=== PATIENT | male | born 1960 | race Caucasian/White ===

== ENCOUNTER 2023-03-10 12:32 | Outpatient (OUT) | payer OTHER, SELFPAY ==
[2023-03-10 13:26] LABS: Basophils Percent Auto 0.5 % (0.2-2.0); Eosinophils Absolute Auto 0.2 10^3/uL (0.0-0.7); Hematocrit 50.1 % (42.0-54.0); Hemoglobin 16.3 g/dL (14.0-18.0); Immature Granulocytes Abs Auto 0.05 10^3/uL (0.00-0.03); Immature Granulocytes Pct Auto 0.7 % (0.0-0.5); Lymphocytes Percent Auto 26.3 % (20.5-60.0); Mean Corpuscular HGB Conc 32.5 g/dL (29.9-35.2); Mean Corpuscular Hemoglobin 30.6 pg (25.9-34.0); Mean Platelet Volume 9.3 fL (9.5-13.5); Monocytes Absolute Auto 0.6 10^3/uL (0.3-0.8); Monocytes Percent Auto 8.3 % (1.7-12.0); Neutrophils Absolute Auto 4.7 10^3/uL (1.4-6.5); Neutrophils Percent Auto 62.2 % (43.0-75.0); Platelet Count 178 10^3/uL (150-450); Red Blood Count 5.33 10^6/uL (4.70-6.10); White Blood Count 7.5 10^3/uL (4.0-11.0)
[2023-03-10 13:26] LABS: Bilirubin Urine NEGATIVE (NEGATIVE); Blood Urine SMALL (NEGATIVE); Clarity Urine CLEAR (CLEAR); Color Urine YELLOW (YELLOW); Glucose Urine UA NEGATIVE (NEGATIVE); Ketones Urine NEGATIVE (NEGATIVE); Leukocyte Esterase Urine NEGATIVE (NEGATIVE); Nitrite Urine NEGATIVE (NEGATIVE); Protein Urine NEGATIVE (NEG/TRACE); Specific Gravity Urine 1.025 (1.005-1.025); Urobilinogen Urine 0.2 EU/dL (0.2-1.0); pH Urine 5.5 (5.0-9.0)
[2023-03-10 13:36] LABS: Alanine Aminotransferase 50 U/L (16-63); Albumin Globulin Ratio 1.3; Albumin Level 3.8 g/dL (3.4-5.0); Alkaline Phosphatase 108 U/L (46-116); Anion Gap 10.2; Aspartate Amino Transferase 18 U/L (15-37); BUN Creatinine Ratio 11.3; Bilirubin Total 0.8 mg/dL (0.2-1.0); Calcium 9.8 mg/dL (8.5-10.1); Carbon Dioxide 28.3 mmol/L (21.0-32.0); Chloride 102 mmol/L (98-107); Chol HDL Ratio 2.5; Cholesterol 139 mg/dL (<=200); Estimated GFR (African America >60 (>=60); Estimated GFR (Non-African Ame >60 (>=60); Glucose 91 mg/dL (74-106); HDL Cholesterol 55 mg/dL (40-60); LDL Cholesterol Calculated 68.6 mg/dL; Potassium 4.5 mmol/L (3.5-5.1); Sodium 136 mmol/L (136-145); Total Protein 6.8 g/dL (6.4-8.2); Triglycerides 77 mg/dL (<=150); VLDL CHOLESTEROL 15.4 mg/dL
[2023-03-10 13:37] LABS: Bacteria Urine NONE SEEN #/HPF (NONE SEEN); Cast Seen? NONE SEEN #/LPF (NONE SEEN); Crystals Seen? None Seen #/HPF (None Seen); Mucus Urine NONE SEEN (NONE SEEN); Squamous Epithelial Cell Urine RARE #/LPF (NONE/RARE); WBC Urine 0-2 #/HPF (NONE SEEN)
[2023-03-10 14:06] LABS: Prostate Specific Antigen Scrn 3.58 ng/mL (<=4.00)
== END 2023-03-10 12:33 | disposition home or self-care (01) ==
LOC: LAB 12:35
PROVIDERS: PCP Internal Medicine; Visit Provider Internal Medicine
DX: Z00.00 Encounter for general adult medical examination without abnormal findings (principal)
CPT/HCPCS: 36415; 80053; 80061; 81001; 85025; G0103

== ENCOUNTER 2024-03-11 12:06 | Outpatient (OUT) | payer OTHER, SELFPAY ==
[2024-03-11 12:39] LABS: Basophils Percent Auto 0.3 % (0.2-2.0); Eosinophils Absolute Auto 0.1 10^3/uL (0.0-0.7); Eosinophils Percent Auto 1.7 % (0.9-7.0); Hematocrit 51.2 % (42.0-54.0); Hemoglobin 16.5 g/dL (14.0-18.0); Immature Granulocytes Abs Auto 0.05 10^3/uL (0.00-0.03); Immature Granulocytes Pct Auto 0.7 % (0.0-0.5); Lymphocytes Absolute Auto 2.1 10^3/uL (1.2-3.8); Lymphocytes Percent Auto 27.2 % (20.5-60.0); Mean Corpuscular HGB Conc 32.2 g/dL (29.9-35.2); Mean Corpuscular Hemoglobin 30.3 pg (25.9-34.0); Mean Corpuscular Volume 94.1 fL (80.0-94.0); Mean Platelet Volume 9.8 fL (9.5-13.5); Monocytes Absolute Auto 0.6 10^3/uL (0.3-0.8); Monocytes Percent Auto 7.5 % (1.7-12.0); Neutrophils Absolute Auto 4.8 10^3/uL (1.4-6.5); Neutrophils Percent Auto 62.6 % (43.0-75.0); Platelet Count 146 10^3/uL (150-450); Red Blood Count 5.44 10^6/uL (4.70-6.10); Red Cell Distribution Width 11.9 % (11.0-15.0); White Blood Count 7.7 10^3/uL (4.0-11.0)
[2024-03-11 13:02] LABS: Alanine Aminotransferase 52 U/L (16-63); Albumin Globulin Ratio 1.2; Alkaline Phosphatase 121 U/L (46-116); Anion Gap 14.1; BUN Creatinine Ratio 9.9; Calcium 9.6 mg/dL (8.5-10.1); Carbon Dioxide 25.7 mmol/L (21.0-32.0); Chloride 106 mmol/L (98-107); Chol HDL Ratio 2.6; Cholesterol 160 mg/dL (<=200); Estimated GFR (African America >60 (>=60 mL/min/1.73m^2); Estimated GFR (Non-African Ame >60 (>=60 mL/min/1.73m^2); Globulin 3.4 g/dL; Glucose 81 mg/dL (74-106); HDL Cholesterol 62 mg/dL (40-60); Sodium 141 mmol/L (136-145); Total Protein 7.4 g/dL (6.4-8.2); Triglycerides 98 mg/dL (<=150); VLDL CHOLESTEROL 19.6 mg/dL
[2024-03-11 13:03] LABS: Aspartate Amino Transferase 35 U/L (15-37); Potassium 4.8 mmol/L (3.5-5.1)
[2024-03-11 13:17] LABS: Prostate Specific Antigen Scrn 4.31 ng/mL (<=4.00)
== END 2024-03-11 12:07 | disposition home or self-care (01) ==
LOC: LAB 12:07
PROVIDERS: PCP Internal Medicine; Visit Provider Internal Medicine
DX: Z00.00 Encounter for general adult medical examination without abnormal findings (principal)
CPT/HCPCS: 36415; 80053; 80061; 85025; G0103

== ENCOUNTER 2025-03-14 11:21 | Outpatient (OUT) | payer OTHER, SELFPAY ==
--- OUTSIDE RECORDS SUMMARY | 2024-09-27 06:40 | XMS_ITS ---
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 Mechanic Name Role Phone Ari Pagan DO Primary Care Provider Unavaila Buck Lacy [phone] Encounters Encounter Location Date Provider Diagnosis Urology [facility] [address] [address] 09/27/2024 Buck Milner Plan Of Treatment Next Appt Details Provider Name:Jaye Cleary , 03/31/2025 11:00:00 AM, [facility], [address], [address], Progress Notes * Adarsh ARIZMENDI RDOB:1960 (64 yo M)Acc No.[id number]:09/27/2024 UNLOCKED PROGRESS NOTE Patient:?Adarsh ARIZMENDI :?Buck Milner MDDOB:1960???Age:64 Y ???Sex:MaleDate:09/27/2024Phone:[phone]:[address] [place], [place]-[address]Pcp:Ari Pagan DO Subjective: * Chief Complaints: * * Medical History: Objective: * Vitals: Assessment: Plan: * Treatment: * * Electronic signature of Buck Milner MD, [id number] on 03/14/2025 at 11:24 AM ESTSign off status: PendingVisit Status:?CANC (Cancelled) * Provider: Jia Milner MD Date: 0 09/27/2024 Generated for Printing/Faxing/eTransmitting on:?03/14/2025 11:24 AM EST
--- OUTSIDE RECORDS SUMMARY | 2025-02-28 19:30 | XMS_ITS | Encounter Summary ---
Author Organization [facility] Address [address], [address] [place] [address] Care Team Providers Care Manager Cleaning Name Role Phone Ari Pagan DO Primary Care Provider [phone] Reason for Visit * ReasonCommentsSleep Apnea * Sleep Study (Routine) - ClosedSpecialtyDiagnoses / ProceduresReferred By ContactReferred To [facility] Diagnoses Obstructive sleep apnea (adult) (pediatric) Procedures [place] POLYSOM 6/>YRS SLEEP 4/> ADDL LIBORIO ATTND Ari Pagan DO [address] [place] [address] Phone: tel: fax: [facility] [address] [place] [address] Phone: tel: Referral IDStatusReasonStart DateExpiration DateVisits RequestedVisits [id number] Encounter Details DateTypeDepartmentCare Team (Latest Contact Info)Yfdnpxfwxxe44/16/2025 7:30 PM EST - 02/28/2025 11:59 PM ESTHospital Encounter [facility] [address] [place] [id number] Discharge Disposition: Home or Self Care Social History Tobacco UseTypesPacks/DayYears UsedDateSmoking Tobacco: FormerSmokeless Tobacco: CurrentChewAlcohol UseStandard Drinks/WeekCommentsNo0 (1 standard drink = 0.6 oz pure alcohol)Housing Stability Vital SignAnswerDate RecordedIn the last 12 months, was there a time when you were not able to pay the mortgage or rent on time?No01/02/2025In the past 12 months, how many times have you moved where you were living?t any time in the past 12 months, were you homeless or living in a senior care (including now)?No01/02/2025Hunger Vital SignAnswerDate RecordedWithin the past 12 months, you worried that your food would run out before you got the money to buymore.Never true01/02/2025Within the past 12 months, the food you bought just didn't last and you didn't have money to get more.Never true01/02/2025PRAPARE - TransportationAnswerDate RecordedIn the past 12 months, has lack of transportation kept you from medical appointments or from getting medications?No01/02/2025In the past 12 months, has lack of transportation kept you from meetings, work, or from getting things needed for daily living?No01/02/2025HC UtilitiesAnswerDate RecordedIn the past 12 months has the electric, gas, oil, or water company threatened to shut off services in your home?No01/02/2025Interpersonal Safety Domain Source: IP Abuse Screening AnswerDate RecordedPhysical bklzwCqyvcv01/03/2025Verbal uscxoOviagi67/03/2025 Emotional jaawqKspbax32/03/2025Financial vetjtPykoaz82/03/2025Sexual abuseDenies 01/16/2025Sex and Gender InformationValueDate RecordedSex [facility]/12/2024 9:47 AM ESTLegal MqlDtyx6507/04/2014 3:38 PM EDTGender IdentityNot on fileSexual OrientationNot on filedocumented as of this encounter Medications at Time of Discharge MedicationSigDispense QuantityRefillsLast FilledStart DateEnd Date apixaban (ELIQUIS) 5 MG TABS tablet Take 1 tablet by mouth 2 times daily 60 tablet 01/04/2025 lisinopril (PRINIVIL;ZESTRIL) 5 MG tablet Take 4 tablets by mouth daily 120 tablet 01/04/2025 metoprolol tartrate (LOPRESSOR) 25 MG tablet Take 1 tablet by mouth 2 times daily 60 tablet dilTIAZem (CARDIZEM CD) 120 MG extended release capsule Take 1 capsule by mouth daily 30 capsule bicalutamide (CASODEX) 50 MG chemo tablet Take 1 tablet by mouth nightly acetaminophen (TYLENOL) 500 MG tablet Take 2 tablets by mouth every 6 hours as needed for Pain atorvastatin (LIPITOR) 40 MG tablet Take 1 tablet by mouth daily fluticasone (FLONASE) 50 MCG/ACT nasal spray 1-2 sprays by Nasal route as needed for Rhinitis tamsulosin (FLOMAX) 0.4 MG capsule Take 1 capsule by mouth daily 90 capsule aspirin 81 MG EC tablet Take 1 tablet by mouth dailydocumented as of this encounter Plan of Treatment Not on file documented as of this encounter Procedures Procedure NamePriorityDate/TimeAssociated DiagnosisCommentsBASELINE DIAGNOSTIC SLEEP JQHRHFjdtzky57/16/2025documented in this encounter Results * Baseline Diagnostic Sleep Study (02/28/2025)Specimen (Source)Anatomical Location / LateralityCollection Method / VolumeCollection TimeReceived Time 02/28/2025 Narrative Authorizing ProviderResult TypeResult StatusBenjamie Pagan [facility] ORDERABLESEdited Result - FinalPerforming OrganizationAddressCity/State/ZIP Code Phone Number [facility] SLEEP documented in this encounter Visit Diagnoses Not on filedocumented in this encounter Care Teams Team MemberRelationshipSpecialtyStart DateEnd Date Ari Pagan DO PCP - GeneralInternal Medicine03/24/18documented as of this encounter
--- OUTSIDE RECORDS SUMMARY | 2025-03-01 03:10 | XMS_ITS | Encounter Summary ---
Author Organization [facility] Address [address], [address] [place] [address] Care Team Providers Care Systems Mgr Name Role Phone Ari Pagan DO Primary Care Provider [phone] Reason for Visit * ReasonCommentsHematuriaIncreased tonight prostates removed 01/16/25 also placed on blood thinners for afib aand restarted thinners on 01/19/25 Encounter Details DateTypeDepartmentCare Team (Latest Contact Info)Ctwotafhgsw39/17/2025 3:10 AM EST - 03/01/2025 6:03 AM [facility] Emergency Department [address] [place] [address] [place] [address] [place] [id number] Acute cystitis with hematuria (Primary Dx) Discharge Disposition: Home or Self Care Social [...] were you homeless or living in a longterm (including now)?No01/02/2025Hunger Vital SignAnswerDate RecordedWithin the past [...] Domain Source: IP Abuse Screening AnswerDate RecordedPhysical bhbzoIjfaqa69/03/2025Verbal jurmiOecvcn92/03/2025 Emotional ovykyBxbvmp62/03/2025Financial lrugiXdbhww81/03/2025Sexual abuseDenies 01/16/2025Sex and Gender InformationValueDate RecordedSex [facility] 05/12/2024 9:47 AM ESTLegal ErcIhow1707/04/2014 3:38 PM EDTGender IdentityNot on fileSexual OrientationNot on filedocumented as of this encounter Last Filed Vital Signs Vital SignReadingTime TakenCommentsBlood Qhqopfzo254/9103/01/2025 4:10 AM EST Cvqkm2510/17/2025 6:00 AM SAMAgkseavpqoo63.7 ??C (98 ??F)03/01/2025 6:00 AM EST Respiratory Knff619605/02/2024 3:11 AM ESTOxygen Dcjlimfhpr20%03/01/2025 5:39 AM ESTInhaled Oxygen Concentration--Nawcsk354.1 kg (245 lb)03/01/2025 3:11 AM EST Rvmtte116 cm (6' 2 )03/01/2025 3:11 AM ESTBody Mass Index31.4603/01/2025 3:11 AM ESTdocumented in this encounter Discharge Instructions * Attachments The following attachments cannot be sent through Care Everywhere. * UTI (Urinary Tract Infection): Male (Faroese) documented in this encounter Medications at Time of Discharge [...] EC tablet Take 1 tablet by mouth daily cephALEXin (KEFLEX) 500 MG capsule Take 1 capsule by mouth 2 times daily for 5 days 10 capsule documented as of this encounter Plan of Treatment Not on file documented as of this encounter Procedures Procedure NamePriorityDate/TimeAssociated DiagnosisCommentsCT ABDOMEN PELVIS W IV BLKJWSVZTDDB40/17/2025 4:29 AM EST URINALYSIS WITH REFLEX TO CULTUREStat Sunquest Label print03/01/2025 3:58 AM EST MICROSCOPIC YOTFROKDVXVhtzubt77/17/2025 3:58 AM EST CULTURE, BUEMSPjnylus69/17/2025 3:58 AM EST CBC WITH AUTO DIFFERENTIALStat [employer]quest Label print03/01/2025 3:45 AM EST APTTStat [employer]quest Label print03/01/2025 3:45 AM EST PROTIME-INRStat [employer]quest Label print03/01/2025 3:45 AM EST COMPREHENSIVE METABOLIC PANELStat [employer]quest Label print03/01/2025 3:45 AM EST documented in this encounter Results * CT ABDOMEN PELVIS W IV CONTRAST Additional Contrast? None (03/01/2025 4:29 AM EST)Anatomical RegionLateralityModalityAbdomen, Pelvis, HipComputed Tomography Specimen (Source)Anatomical Location / LateralityCollection Method / Volume Collection TimeReceived Time03/01/2025 5:04 AM EST Impressions 03/01/2025 5:06 AM EST 1. Status post prostatectomy with contracted bladder, limiting evaluation. 2. Mild pelvic and periumbilical fat stranding, possibly related to recent surgery. Narrative 03/01/2025 5:06 AM EST EXAM: CT ABDOMEN AND PELVIS WITH CONTRAST 03/01/2025 04:29:11 AM TECHNIQUE: CT of the abdomen and pelvis was performed with the administration of intravenous contrast. Multiplanar reformatted images are provided for review. Automated exposure control, iterative reconstruction, and/or weight-based adjustment of the mA/kV was utilized to reduce the radiation dose to as low as reasonably achievable. COMPARISON: None available. CLINICAL HISTORY: hematuria. ORDERING SYSTEM PROVIDED HISTORY: hematuria; TECHNOLOGIST PROVIDED HISTORY: ; hematuria; ; Decision Support Exception - unselect if not a suspected or confirmed emergency medical condition->Emergency Medical Condition (MA); Reason for exam: hematuria; Additional signs andsymptoms?->Had prostate surgery on 01/16 and started blood thinners, has had intermittent hematuria. Patient now has had 5x days of excessive hematuria. FINDINGS: LOWER CHEST: Calcified coronary atheromatous plaque. Emphysematous changes in the lung bases. Scarring in the lower lobes, right greater than left. LIVER: The liver is unremarkable. GALLBLADDER AND BILE DUCTS: Gallbladder is unremarkable. No biliary ductal dilatation. SPLEEN: No acute abnormality. PANCREAS: No acute abnormality. ADRENAL GLANDS: No acute abnormality. KIDNEYS, URETERS AND BLADDER: No stones in the kidneys or ureters. No hydronephrosis. No perinephric or periureteral stranding. The bladder is contracted, limiting evaluation. GI AND BOWEL: Stomach demonstrates no acute abnormality. Diverticulosis. There is no bowel obstruction. PERITONEUM AND RETROPERITONEUM: No ascites. No free air. VASCULATURE: Aorta is normal in caliber. LYMPH NODES: No lymphadenopathy. REPRODUCTIVE ORGANS: Status post prostatectomy. BONES AND SOFT TISSUES: No acute osseous abnormality. Small fat-containing umbilical hernia. Mild fat stranding in the superumbilical subcutaneous fat, which may be related to recent procedure. Mild fat stranding in the pelvis is noted, which may be related to provided history of recent surgery. Procedure Note Rolando Hogue MD - 03/01/2025 EXAM: CT ABDOMEN AND PELVIS WITH CONTRAST 03/01/2025 04:29:11 AM TECHNIQUE: CT of the abdomen and pelvis was performed with the administration ofintravenous contrast. Multiplanar reformatted images are provided forreview. Automated exposure control, iterative reconstruction, and/orweight-based adjustment of the mA/kV was utilized to reduce the radiation dose to as low as reasonably achievable. COMPARISON: None available. CLINICAL HISTORY: hematuria. ORDERING SYSTEM PROVIDED HISTORY: hematuria; TECHNOLOGIST PROVIDED HISTORY: ; hematuria; ; Decision Support Exception - unselect if not a suspected or confirmed emergency medical condition->Emergency Medical Condition (MA);Reason for exam: hematuria; Additional signs and symptoms?->Had prostatesurgery on 01/16 and started blood thinners, has had intermittent hematuria. Patient now has had 5x days of excessive hematuria. FINDINGS: LOWER CHEST: Calcified coronary atheromatous plaque. Emphysematous changes in the lungbases. Scarring in the lower lobes, right greater than left. LIVER: The liver is unremarkable. GALLBLADDER AND BILE DUCTS: Gallbladder is unremarkable. No biliary ductal dilatation. SPLEEN: No acute abnormality. PANCREAS: No acute abnormality. ADRENAL GLANDS: No acute abnormality. KIDNEYS, URETERS AND BLADDER: No stones in the kidneys or ureters. No hydronephrosis. No perinephric or periureteral stranding. The bladder is contracted, limiting evaluation. GI AND BOWEL: Stomach demonstrates no acute abnormality. Diverticulosis. There is nobowel obstruction. PERITONEUM AND RETROPERITONEUM: No ascites. No free air. VASCULATURE: Aorta is normal in caliber. LYMPH NODES: No lymphadenopathy. REPRODUCTIVE ORGANS: Status post prostatectomy. BONES AND SOFT TISSUES: No acute osseous abnormality. Small fat-containing umbilical hernia. Mildfat stranding in the superumbilical subcutaneous fat, which may be relatedto recent procedure. Mild fat stranding in the pelvis is noted, which maybe related to provided history of recent surgery. IMPRESSION: 1. Status post prostatectomy with contracted bladder, limitingevaluation. 2. Mild pelvic and periumbilical fat stranding, possibly related to recent surgery. Authorizing ProviderResult TypeResult Tarakaruna Maya I, [facility] ORDERABLESFinal Result * (ABNORMAL) Culture, Urine (03/01/2025 3:58 AM EST)ComponentValueRef RangeTest MethodAnalysis TimePerformed AtPathologist SignatureSpecimen Description.CLEAN CATCH URINE03/01/2025 3:58 AM ESTMERCY LABORATORIESCultureSTAPHYLOCOCCUS AUREUS >100,000 CFU/ML This isolate is methicillin susceptible.(A)03/01/2025 3:58 AM ESTMERCY LABORATORIESSpecimen (Source)Anatomical Location / Laterality Collection Method / VolumeCollection TimeReceived TimeURINE SPECIMEN / Unknown 03/01/2025 3:58 AM EST03/01/2025 4:01 AM EST Narrative OrganismAntibioticMethodSusceptibilityStaphylococcus aureusgentamicinBACTERIAL SUSCEPTIBILITY PANEL FARA <=0.5: Sensitive Comment:Gentamicin is used only in combination with other active agents that test susceptible.Staphylococcus aureuslevofloxacinBACTERIAL SUSCEPTIBILITY PANEL FARA <=0.12: Sensitive Staphylococcus aureusnitrofurantoinBACTERIAL SUSCEPTIBILITY PANEL FARA <=16: Sensitive Staphylococcus aureusoxacillinBACTERIAL SUSCEPTIBILITY PANEL FARA 0.5: Sensitive Comment: This staph isolate may be susceptible to Penicillin. Please contact Microbiology for confirmatory testing of susceptibility if Pencillin is a therapeutic consideration. Staphylococcus aureustetracyclineBACTERIAL SUSCEPTIBILITY PANEL FARA <=1: Sensitive Staphylococcus aureustrimethoprim-sulfamethoxazoleBACTERIAL SUSCEPTIBILITY PANEL FARA <=10: Sensitive Authorizing ProviderResult TypeResult StatusZulma Maya I, DO MICROBIOLOGY - GENERAL ORDERABLESFinal ResultPerforming OrganizationAddress City/State/ZIP CodePhone Number [facility] [address] [place] [address], [facility] [phone] [address], [facility] [phone] * (ABNORMAL) Microscopic Urinalysis (03/01/2025 3:58 AM EST)ComponentValueRef RangeTest MethodAnalysis TimePerformed AtPathologist SignatureWBC, UATOO NUMEROUS TO COUNT(A)0 TO 5 /HPF03/01/2025 3:58 AM [facility] LABRBC, UATOO NUMEROUS TO COUNT(A)0 TO 2 /HPF03/01/2025 3:58 AM EST [facility] LABCasts UA0 TO 2(A)None /LPF105/02/2024 3:58 AM [facility] LABCasts UAHYALINE(A)None /LPF 03/01/2025 3:58 AM [facility] LABEpithelial Cells, UA0 TO 2/HPF03/01/2025 3:58 AM [facility] Bacteria, UAFEW(A)None03/01/2025 3:58 AM [facility] LABSpecimen (Source)Anatomical Location / LateralityCollection Method / Volume Collection TimeReceived Time03/01/2025 3:58 AM EST03/01/2025 4:01 AM EST Narrative Authorizing ProviderResult TypeResult StatusMansour HARITHA Lino ORDERABLESFinal ResultPerforming OrganizationAddressCity/State/ZIP CodePhone Number [facility] [address] [facility] [place] [address], [facility] [phone] * (ABNORMAL) Urinalysis with Reflex to Culture (03/01/2025 3:58 AM EST)Component ValueRef RangeTest MethodAnalysis TimePerformed AtPathologist SignatureColor, UAOrange(A)Ngoufp6003/01/2025 3:58 AM [facility] Turbidity UATurbid(A)Clear03/01/2025 3:58 AM [facility] LABGlucose, UrNEGATIVENEGATIVE mg/dL03/01/2025 3:58 AM [facility] LABBilirubin, UrinePresumptive positive. Unable to confirm due to unavailability of reagent.(A)REOOKEVR47/17/2025 3:58 AM EST [facility] LABKetones, UrineNEGATIVENEGATIVE mg/dL 03/01/2025 3:58 AM [facility] LABSpecific [place], UA1.0211.000 - 1.8259603/01/2025 3:58 AM [facility] LABUrine HgbLARGE(A)QBEHTKPI74/17/2025 3:58 AM [facility] LABpH, Urine5.05.0 - 8.012 3:58 AM [facility] LABProtein, UA2+(A)NEGATIVE mg/dL03/01/2025 3:58 AM [facility] LABUrobilinogen, UrineNormal0.0 - 1.0 EU/dL 03/01/2025 3:58 AM [facility] LABNitrite, Urine TAVCPNEEFCWDGZCT00/17/2025 3:58 AM [facility] Leukocyte Esterase, UrineMOD(A)HIWJQOVU45/17/2025 3:58 AM [facility] LABSpecimen (Source)Anatomical Location / Laterality Collection Method / VolumeCollection TimeReceived TimeURINE SPECIMEN / Unknown 03/01/2025 3:58 AM EST03/01/2025 4:01 AM EST Narrative Authorizing ProviderResult TypeResult StatusMansour HARITHA Lino ORDERABLESFinal ResultPerforming OrganizationAddressCity/State/ZIP CodePhone Number [facility] [address] [place] [address], [facility] [phone] * APTT (03/01/2025 3:45 AM EST)ComponentValueRef RangeTest MethodAnalysis Time Performed AtPathologist CwrkrdptvLQOP17.524.0 - 36.0 sec03/01/2025 3:45 AM EST [facility] LABComment: ? IV Heparin Therapy Range: ?62.0-94.0 ? Specimen (Source)Anatomical Location / LateralityCollection Method / Volume Collection TimeReceived TimeBloodBLOOD SPECIMEN / Whwxdje0003/01/2025 3:45 AM EST 03/01/2025 3:59 AM EST Narrative Authorizing ProviderResult TypeResult StatusMansokaruna Maya I, DO HEMATOLOGY ORDERABLESFinal ResultPerforming OrganizationAddressty/State/ZIP CodePhone Number [facility] [address] [facility] [place] [address], [facility] [phone] * (ABNORMAL) Protime-INR (03/01/2025 3:45 AM EST)ComponentValueRef RangeTest MethodAnalysis TimePerformed AtPathologist ToqvpipxbLgjteya87.1(H)11.8 - 14.6 sec03/01/2025 3:45 AM [facility] LABINR1. 3:45 AM [facility] LABComment: ? Therapeutic Range: Moderate Anticoagulant Intensity: INR = 2.0-3.0 High Anticoagulant Intensity: INR = 2.5-3.5 Specimen (Source)Anatomical Location / LateralityCollection Method / Volume Collection TimeReceived TimeBloodBLOOD SPECIMEN / Pqgjybr3203/01/2025 3:45 AM EST 03/01/2025 3:59 AM EST Narrative Authorizing ProviderResult TypeResult StatusMankaruna Maya I, DO HEMATOLOGY ORDERABLESFinal ResultPerforming OrganizationAddressty/State/ZIP CodePhone Number [facility] [address] [facility] [place] [address], [facility] [phone] * (ABNORMAL) Comprehensive Metabolic Panel (03/01/2025 3:45 AM EST)Component ValueRef RangeTest MethodAnalysis TimePerformed AtPathologist SignatureSodium 852022 - 145 mmol/L105/02/2024 3:45 AM [facility] Potassium4.23.7 - 5.3 mmol/L105/02/2024 3:45 AM [facility] YKKKwjuigcs91160 - 107 mmol/L105/02/2024 3:45 AM [facility] XQOSD53221 - 31 mmol/L12/ 3:45 AM [facility] LABAnion Gap99 - 16 mmol/L105/02/2024 3:45 AM [facility] MYXBffitxx355(H)74 - 99 mg/dL03/01/2025 3:45 AM [facility] OTBDWU482 - 23 mg/dL03/01/2025 3:45 AM [facility] LABCreatinine1.00.7 - 1.2 mg/dL03/01/2025 3:45 AM [facility] LABEst, Glom Filt Rate84>60 mL/min/1.73m2 03/01/2025 3:45 AM [facility] LABComment: ? These results are not intended for use in patients <18 years of age. ? eGFR results are calculated without a race factor using the 2020 CKD-EPI equation. Careful clinical correlation is recommended, particularly when comparing to results calculated using previous equations. The CKD-EPI equation is less accurate in patients with extremes of muscle mass, extra-renal metabolism of creatine, excessive creatine ingestion, or following therapy that affects renal tubular secretion. Calcium9.48.6 - 10.4 mg/dL03/01/2025 3:45 AM [facility] LABTotal Protein6.4(L)6.6 - 8.7 g/dL03/01/2025 3:45 AM [facility] LABAlbumin4.23.5 - 5.2 g/dL03/01/2025 3:45 AM [facility] LABTotal Bilirubin0.80.0 - 1.2 mg/dL03/01/2025 3:45 AM [facility] LABAlkaline Qrfjjsdaypm58108 - 129 U/L 03/01/2025 3:45 AM [facility] BWYCDQ8310 - 50 U/L 03/01/2025 3:45 AM [facility] ZQPLRL5472 - 50 U/L 03/01/2025 3:45 AM [facility] LABSpecimen (Source) Anatomical Location / LateralityCollection Method / VolumeCollection Time Received TimeBloodBLOOD SPECIMEN / Evwlbwb5103/01/2025 3:45 AM EST03/01/2025 3:59 AM EST Narrative Authorizing ProviderResult TypeResult StatusMansour Jess Patel DO CHEMISTRY ORDERABLESFinal ResultPerforming OrganizationAddressCity/State/ZIP CodePhone Number [facility] [address] [phone] * (ABNORMAL) CBC with Auto Differential (03/01/2025 3:45 AM EST)ComponentValue Ref RangeTest MethodAnalysis TimePerformed AtPathologist SignatureWBC8.23.5 - 11.0 k/uL03/01/2025 3:45 AM [facility] LABRBC5.05 4.21 - 5.77 m/uL03/01/2025 3:45 AM [facility] Zczhklsmvb61.913.5 - 17.5 g/dL03/01/2025 3:45 AM [facility] NRAEknjnheezy66.041.0 - 53.0 %03/01/2025 3:45 AM [facility] QOUZDU30.180.0 - 100.0 fL03/01/2025 3:45 AM [facility] IDJNAL73.526.0 - 34.0 pg03/01/2025 3:45 AM [facility] ZOHCRJR60.631.0 - 37.0 g/dL03/01/2025 3:45 AM EST [facility] CHDISP31.211.5 - 14.9 %03/01/2025 3:45 AM [facility] KJPNkjvykuys463012 - 450 k/uL03/01/2025 3:45 AM [facility] LABMPV9.28.0 - 13.5 fL03/01/2025 3:45 AM [facility] LABNRBC Automated0.00 per 100 WBC 03/01/2025 3:45 AM [facility] LABNeutrophils %5936 - 66 %03/01/2025 3:45 AM [facility] LABLymphocytes %29 24 - 44 %03/01/2025 3:45 AM [facility] LABMonocytes %93 - 12 %03/01/2025 3:45 AM [facility] LAB Eosinophils %20 - 4 %03/01/2025 3:45 AM [facility] LABBasophils %00 - 2 %03/01/2025 3:45 AM [facility] LABImmature Granulocytes %1(H)0 %03/01/2025 3:45 AM [facility] LABNeutrophils Absolute4.791.50 - 8.10 k/uL03/01/2025 3:45 AM [facility] LABLymphocytes Absolute2.401.10 - 3.70 k/uL03/01/2025 3:45 AM [facility] LABMonocytes Absolute0.700.10 - 1.20 k/uL03/01/2025 3:45 AM [facility] LABEosinophils Absolute0.190.00 - 0.44 k/uL03/01/2025 3:45 AM EST [facility] LABBasophils Absolute0.030.00 - 0.20 k/uL 03/01/2025 3:45 AM [facility] LABImmature Granulocytes Absolute0.050.00 - 0.30 k/uL03/01/2025 3:45 AM [facility] LABSpecimen (Source)Anatomical Location / Laterality Collection Method / VolumeCollection TimeReceived TimeBloodBLOOD SPECIMEN / Tlwzkqn3903/01/2025 3:45 AM EST03/01/2025 3:59 AM EST Narrative Authorizing ProviderResult TypeResult StatusMansour Jess Patel DO HEMATOLOGY ORDERABLESFinal ResultPerforming OrganizationAddressCity/State/ZIP CodePhone Number [facility] [address] [phone] documented in this encounter Visit Diagnoses Diagnosis Acute cystitis with hematuria- Primary Acute cystitis documented in this encounter Administered Medications Medication OrderMAR ActionAction DateDoseRateSite iopamidol (ISOVUE-370) 76 % injection 75 mL 75 mL, IntraVENous, IMG ONCE PRN, 1 dose, Starting on Thu03/01/25 at 0428, Until Thu03/01/25 at 0438, Other Given03/01/2025 4:38 AM EST75 mLs sodium chloride 0.9 % bolus 100 mL 100 mL (0.9 mL/kg), IntraVENous, at 3,000 mL/hr, Administer over 2 Minutes, ONCE, On Thu03/01/25 at 0430, For 1 dose New Bag03/01/2025 4:38 AM MZK102 zUs6567 mL/hr sodium chloride flush 0.9 % injection 10 mL 10 mL, IntraVENous, PRN, 1 dose, Starting on Thu03/01/25 at 0428, Until Thu03/01/25 at 0438, LineCare, For Line Patency: Peripheral IV = 5 mL; Midline or Central Line = 10 mL/lumen. If following IV push medication, administer flush at same rate as the IV push. Flush volume is determined by type of infusion therapy being given. For non-viscous solutions use: Peripheral IV = 5 mL Midline or Central Line = 10 mL/lumen For viscous solutions (i.e. blood components, parenteral nutrition, contrast media, or after obtaining blood sample) use: Peripheral IV = 10 mL Midline or Central Line = 20 mL/lumen Given03/01/2025 4:38 AM EST10 mLsdocumented in this encounter Active and Recently Administered Medications Times are shown in EST.Medication Order/ sodium chloride 0.9 % bolus 100 mL (COMPLETED) 100 mL (0.9 mL/kg), IntraVENous, at 3,000 mL/hr, Administer over 2 Minutes, ONCE, On Thu03/01/25 at 0430, For 1 dose * 0438 (New Bag - Provider: Mylene Colorado) * 0448 (Stopped - Provider: Celeste Hernandes RN) Medication Order/ iopamidol (ISOVUE-370) 76 % injection 75 mL (COMPLETED) 75 mL, IntraVENous, IMG ONCE PRN, 1 dose, Starting on Thu03/01/25 at 0428, Until Thu03/01/25 at 0438, Other * 0438 (Given - Provider: Mylene [place]) sodium chloride flush 0.9 % injection 10 mL (COMPLETED) 10 mL, IntraVENous, PRN, 1 dose, Starting on Thu03/01/25 at 0428, Until Thu03/01/25 at 0438, LineCare, For Line Patency: Peripheral IV = 5 mL; Midline or Central Line = 10 mL/lumen. If following IV push medication, administer flush at same rate as the IV push. Flush volume is determined by type of infusion therapy being given. For non-viscous solutions use: Peripheral IV = 5 mL Midline or Central Line = 10 mL/lumen For viscous solutions (i.e. blood components, parenteral nutrition, contrast media, or after obtaining blood sample) use: Peripheral IV = 10 mL Midline or Central Line = 20 mL/lumen * 0438 (Given - Provider: Mylene Colorado) documented in this encounter Care Teams Team MemberRelationshipSpecialtyStart DateEnd Date Ari Pagan DO PCP - GeneralInternal Medicine03/24/18documented as of this encounter
--- OUTSIDE RECORDS SUMMARY | 2025-03-14 06:14 | XMS_ITS | Continuity of Care Document ---
Author Organization [facility] Address [address] [place] [address] Phone Care Team Providers Care Park Ranger Name Role Phone Rosa Elena Landaverde CMA Attending Provider Unavaila rAi Bradley DO Primary Care Provider Ari Pagan DO Attending Provider Care Teams Patient Care Team Team Status: Active Member Role/Relationship Status Dates Ari Pagan DO Primary Care Provider Active Visit Care Team Team Status: Active Member Role/Relationship Status Dates Rosa Elena Landaverde CMA Attending Provider Active Start: January 05, 2025 Patient Care Team Team Status: Inactive Member Role/Relationship Status Dates Ari Pagan DO Primary Care Provider Active Start: March 14, 2025 End: March 14enjamie Pagan DOAttending ProviderActiveStart: March 14, 2025 End: March 14, 2025 Chief Complaint and Reason for Visit Chief Complaint Admit Date Amb Documentation January 05, 2025 9 :55am Wellness March 14, 2025 10:22am Reason for Visit Admit Date ASHD (arteriosclerotic heart disease) De cember 2024 10:22am Atrial fibrillation March 14, 2025 10:22am Essential (primary) hypertension Decembe r 2024 10:22am Hypercholesteremia March 14, 2025 10:22am Obesity March 14, 2025 10:22am ALEX (obstructive sleep apnea) February 152024 10:22am Prostate cancer March 14, 2025 10:22am Wellness examination March 14, 2025 10:22am Allergies, Adverse Reactions, Alerts Allergen Type Severity Reaction Last Updated Verified Status No Known Allergies Allergy Unknown March 14, 2025 10:32amYesActive Social History Smoking Status Unknown if ever smoked Observation Status Observation Response Date of Response Legal Sex Male (finding) Sex Assigned At BirthMaleMay 1960 Family History Relationship Condition Age at Onset Recorded Date/T zain father Heart disease Unknown DeceasedUnknownmotherHeart diseaseUnknownMalignant neoplasmUnknownDiabetes mellitusUnknownDeceasedUnknown Problems Active Problems Problem Diagnosis/Recorded Date Onset Date Status C omments ALEX (obstructive sleep apnea) May 12, 2023 8:52am U nknown Active Polyosteoarthritis, unspecifiedFebruary 2023 8:52amUnknownActiveProstate cancerJuly 2024 7:37amUnknownActiveMRI: right sided TR5 nodule - 05/2024,Fusion bx: 07/2024,Paramjit 3+4 (group II),Radical Prostatectomy- 01/16/25, Atrial fibrillationOctober 2024 10:62lw0424RlhwpvAzjfpf test NM: LVEF 57%, no reversible defect, no TID - 12/2024,Echo: LVEF 45-50%, MOODY, normal RV s ize/function, Ao 4.2cm - Wellness examinationDecember 2023 8:32am UnknownActiveHypercholesteremiaFebruary 2023 8:52amUnknownActiveEssential (primary) hypertensionFebruary 2023 8:52amNovember 2015ActiveObesity March 09, 2024 8:32amUnknownActiveASHD (arteriosclerotic heart disease) May 12, 2023 8:52amUnknownActivePCI/stent: 2004, Stress testing: w/ fixed inferior wall defect - 2018,Stress test NM: LVEF 57%, no reversible defect, no TID - 12/2024,Echo: LVEF 45-50%, MOODY, normal RV size/function, Ao 4.2cm - 12/15 5,Inactive/Resolved Problems Problem Diagnosis/Recorded Date Onset Date Status C omments Elevated prostate specific antigen (PSA) May 12, 2023 8:52am April 10, 2018 Resolved MRI: right sided TR5 nodule - 05/2024Fusion bx: 07/2024 Prostate nodule May 30, 2024 9:56am Unknown Resolve d MRI: right sided TR5 nodule - 05/2024Fusion bx: 07/2024 Medications Medication Status Dose Units Route Directions Qty Days Refills S tart Date Stop Date End Date Reason(s) Instructions Adherence Atorvastatin 40 mg tablet Discontinued 0 .ROUTE.JYTFVZQ602Tan 2023 12:02pmMay 2023 2:53pmTAKE 1 TABLET BY MOUTH DAILYAtorvastatin 40 mg tabletDiscontinued0.ROUTE.ANIIHYU200Rmq2023 2:52pmAugust 2023 8:24pmTAKE 1 TABLET BY MOUTH DAILYAtorvastatin 40 mg tabletDiscontinued0.ROUTE.HIFIXEF315Bcwzxg 2023 8:24pmFebruary 2024 7:07amTAKE 1 TABLET BY MOUTH DAILYLevofloxacin 500 mg nvmnpvNghhubeogczj590XVPK Tjhme02787Wczmndhk 2023 12:00amJanuary 2024 12:28pmLevofloxacin 500 mg ynstfcXnebzfnezzcv723APIHCiztc98306Opvvjpl 2024 12:28pmFebruary 2024 5:25pmLisinopril 20 mg tabletDiscontinued0.ROUTE.LOPSDGM382Nikqnsf 2024 7:25amOctober 2024 6:32amTAKE 1 TABLET BY MOUTH EVERY DAYAtorvastatin 40 mg tabletDiscontinued0.ROUTE.GNKUPUE762Vzjbgodj 20th, 2025 7:07amAugust 2024 5:14pmTAKE 1 TABLET BY MOUTH DAILYAtorvastatin 40 mg tabletActive0.ROUTE .WWZLGKL026Dpzojt 2024 5:14pmTAKE 1 TABLET BY MOUTH DAILYComplies with drug therapyLisinopril 20 mg fogstiSuhmgjnekatg51KXQIUkhee42292Dmunkdi 2024 6:32amDecember 2024 10:43amApixaban (Eliquis) 5 mg fqptlxKjgloh8APEU Twice sawgr68067Utjzxwu 2024 11:00pmComplies with drug therapyZolpidem 5 mg skvvenYeneyc0AHPNSmeei at bedtime as needed for bsmwgihh660Gecmoozv 2024 12:00amInsomnia Insomnia, unspecifiedTake before sleep study, avoid drivingComplies with drug therapyAspirin 81 mg tablet,delayed release (DR/EC)Xcpurx21FHBDTkwwtPcqpiwbf 2023 12:00amComplies with drug therapyFluticasone Propionate 50 mcg/actuation spray,kmliibrgwmVqvzic4KGHXGJIEYQWEGZCRivroCsjxftqy 2023 12:00amComplies with drug therapyLisinopril 20 mg wzsavyAaxljdsrmxdd15NTSAAbppk May 12, 2023 12:00amJanuary 2024 7:25amAmoxicillin-Pot Clavulanate 875-125 mg ovcyciMyguximemaer5OEOETVshum 12 gdolg33077Lrejoinr 2023 12:00amDecember 2023 11:26amAtorvastatin 40 mg fryexjBpuosejhekuf95UNDT DailyFebruary 2023 12:00amFebruary 2023 5:53pmAtorvastatin 40 mg bsypeaGpnkbypygsfp84OINEOcoxg03805Dodagyth 2023 5:52pmMay 2023 12:02pmDiltiazem Hcl 120 mg capsule,extended release 12 zgFprgfg643CTKVIoszw dailyDecember 2024 12:00amComplies with drug therapyMetoprolol Tartrate 25 mg sqllgmLmxrpd15NJASOnxnp dailyDecember 2024 12:00amComplies with drug therapy Immunizations Immunization Event Date Not Given Reason Dose Number 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 Lot Number Reason(s) Given Vaccine Information Statement (VIS) Detail Administration Location DTap, unspecified January 27, 2012 DTap, unspecifiedNov2019influenza, unspecified formulationJanuary 20, 2020 Vital Signs Vital Reading Result Reference Range Collection Date/Time Height 74 [in_i] March 14, 2025 10:03dgVrvlnm989.60 kgDecember 2024 10:45amHeart Rate 83 /fcy39-566Alahwwhe 2024 10:45amRespiratory rate12 /atz01-48Qnqtuosn 2024 10:45amBP Hbpthrtp210 mm[Hg]100-140December 2024 10:45amBP Qpkhrumne35 mm[Hg]60-100Dece2024 10:45amBMI (Body Mass Index)31.8 kg/s8DnympakyMarch 14, 2025 10:45am Advance Directives Advance Directive Response Recorded Date/ Time Advance Directives No April 8:38am Insurance Providers Guarantor Adarsh Arizmendi Address [address] [address]Pzixtcc Info.Home Phone: Payer Group Member ID Coverage Type Subscriber Relationship to Subscriber Effective Date Expiration Date [employer] Id: [id number] R Hunt Id: [id number] [address] [address] Home Phone: Self Encounters Encounter Location(s) Arrival/Admit Date Discharge/Departure Date Discharge/Departure Disposition Provider(s) Non-patient / Non-visit -[facility] Octob er 2024 9:55am Rosa Elena Landaverde CMADeparted Physician/Provider [facility] 10:22amDece2024 11:13amDischarged to home care or self care (routine discharge)Ari Pagan DO Recent Diagnosis Onset Date Admit Date ASHD (arteriosclerotic heart disease) Unknown March 14, 2025 10:22am Atrial fibrillation 2024 10:22am Essential (primary) hypertension February 02, 2015 March 14, 2025 10:22am Hypercholesteremia Unknown February 10:22am Obesity Unknown March 14 10:22am ALEX (obstructive sleep apnea) Unknown 2024 10:22am Prostate cancer Unknown March 14 10:22am Wellness examination Unknown March 142024 10:22am Assessments Diagnosis Onset Date Resolution Status Admit Date ASHD (arteriosclerotic heart disease) acuteDe2024 10:22amAtrial utswvzgpziwy2041vnxnlSeyotlky 30th, 2025 10:22amEssential (primary) hypertensionFebruary 02, cuteDecember 2024 10:22amHypercholesteremiaacuteDecember 2024 10:22amObesityacute March 14, 2025 10:22amOSA (obstructive sleep apnea)acuteDecemb2024 10:22amProstate canceracuteDecember 2024 10:22amWellness examinationacute March 14, 2025 10:22am Plan of Treatment [facility] 5:25pmI have instructed this patient on the recommended lifestyle changes, which includes a low fat, high fiber diet along with a regular exercise routine. I have also reviewed the recommended age-appropriate preventive testing for this patient. I have also reviewed the recommended vaccines for their age and risk factors. This patient is stable without activity related chest pain, dyspnea or lightheadedness. I instructed them to continue exercise at least 3x weekly and consume a low salt, low fat, high fiber diet. I instructed them to continue secondary prevention measures in reducing risks for recurrent events. PCI/stent: 2004, Stress testing: w/ fixed inferior wall defect - 2018, Stress test NM: LVEF 57%, no reversible defect, no TID - 12/2024, Echo: LVEF 45-50%, MOODY, normal RV size/function, Ao 4.2cm - , I have instructed this patient on a low fat, high fiber diet and exercise. I have discussed the primary and secondary prevention benefits attributed to lowering LDL cholesterol. I have also discussed the medical treatment of elevated cholesterol, which is based on the 10 year ASCVD risk. I have instructed this patient to consume a healthy, low-fat, low-salt diet. I have also encouraged them to continue exercise with weight loss to achieve/maintain a BMI < 30. I have instructed this patient on the correct procedure for obtaining home BP measurements:? - rest for 5 minutes w/o talking. - positioned w/ feet on floor and arms supported. - average best 2/3 readings w/ goal < 135/85. - update office w/ home readings in 2 weeks. This patient is aware of the benefits associated with treatment of ALEX: With continued use, the patient reduces the risk for NE, CVA, HTN, cardiac dysrhythmias and sudden cardiac deaths. The patient is also aware of the association between ALEX and morning headaches, daytime somnolence, fatigue and obesity, which also has been improved with continued use. The patient is compliant with treatment, wearing the equipment every night for greater than 4 hours. The patient is instructed to continue use of the CPAP for ALEX treatment. I have instructed this patient on a low-fat, high-fiber diet.?? I have also instructed them to reduce calories, portions sizes, sweet drinks and snacks.?? I have also recommended they exercise for 30 minutes, 3-5 times weekly. They are aware of the comorbid conditions associated with excessive weight: Diabetes, HTN, Hyperlipidemia, CAD and arthritis. This patient is [rhythm, rate] controlled. I instructed them to continue anticoagulation to prevent thromboembolic events. I instructed them to monitor their BP, HR and daily weights. I also instructed them to monitor for bleeding complications, including epistaxis, hematuria, melena and hematochezia. Stress test NM: LVEF 57%, no reversible defect, no TID - 12/2024, Echo: LVEF 45-50%, MOODY, normal RV size/function, Ao 4.2cm - Instructed to f/u with Urology MRI: right sided TR5 nodule - 05/2024, Fusion bx: 07/2024, Sharon 3+4 (group II), Radical Prostatectomy - 01/16/25, Future Tests Future scheduled test information is unavailable Pending Tests Pending diagnostic test information is unavailable Future Visits Future appointment information is unavailable Future Procedures Procedure Name Ordered Date Scheduled Date A1C with Estimated Average Glu March 14 11:06am Lipid PanelDecemb2024 11:06am Future Medications Future medication information is unavailable Patient Instructions Patient instructions are unavailable
--- OUTSIDE RECORDS SUMMARY | 2025-03-14 11:26 | XMS_ITS | Patient Health Record ---
Author Organization [facility] Address [address] [place] [address] Care Team Providers Care Munitions Factory Worker Name Role Phone Ari Pagan DO Primary Care Provider UnavailJaye Berg Unavailable [phone] Buck Milner Unavailable [phone] Allergies No Known Allergies Results Component Value Reference Range Notes CREGP (Not yet reviewed by jaja neri) Interpretation: Performing Lab: Notes/Report: Creatinine (POC) 0.9 0.51-1.19 mg/dL eGFR (POC)>90>60 mL/min/1.73m2 Careful clinical correlation is recommended, particularly when comparing to extra-renal metabolism of creatine, excessive creatine ingestion, or following eGFR results are calculated without a race factor using the 2020 CKD-EPI therapy that affects renal tubular secretion. These results are not intended for use in patients <18 years of age. equation. results calculated using previous equations. The CKD-EPI equation is less accurate in patients with extremes of muscle mass, MRI PROSTATE W WO CONTRAST (Not yet reviewed by provider) Interpretation: Performing Lab: Notes/Report: EXAMINATION: Performed at: [facility] - [facility] [address] [facility] [address] TYPE + SCREEN (Not yet reviewed by provider) Interpretation: Performing Lab:[facility], [address], [place] [address] PH:[phone] Notes/Report:Sample Dnmdoutegu57/06/2025,2359Arm Band GxaabqJF900641FAW/Rh(D)A POSITIVEAntibody ScreenNEGATIVEURINE CULTURE (Not yet reviewed by provider) Interpretation: Performing Lab:[facility], [facility] [place] [address] PH:[phone] Notes/Report:Specimen Description.CLEAN CATCH URINE Report Status FINAL 01/03/2025 Culture NO GROWTH Surgical Pathology ([facility]) (Not yet reviewed by provider) Interpretation: Performing Lab: Notes/Report: EXTRAPROSTATIC EXTENSION (pT3a): Not identified Operative Findings: PROSTATE AND SEMINAL VESICLES; BILATERAL PELVIC A, B. Source of Specimen -NUMBER WITH METASTASIS: 0 Interpretation Performed at [facility] 2213 - BENIGN PERIPROSTATIC ADIPOSE TISSUE. HISTOLOGIC GRADE (MADHU SCORE): 3+4 = 7 -[facility] [employer]OR[employer]ATED INTO GRADE: N/A A. PROSTATE GLAND AND SEMINAL VESICLES, RADICAL PROSTATECTOMY: blue, left half black and anterior aspect tagged green. Sectioning are fragments of fat, 7.0 x 4.0 x 2.0 cm in aggregate. Sectioning [address] [facility]. [place], [place] [address] TERTIARY PATTERN 5 (LESS THAN 5%) IN separate fat. focally disrupted seminal vesicles and vasa deferentia. Separate are LYMPHOVASCULAR INVASION: Not identified Electronically Signed Out URINARY BLADDER NECK INVASION (pT3a): Not identified OVERALL MADHU SCORE 7 (IF APPLICABLE): N/A LIMITED TO THE PROSTATE GLAND. Nurys Molina/se:01/16/2025 CRIBRIFORM GLANDS: Present, focal reveals periurethral nodules and in the posterior aspect in the mid REGIONAL LYMPH NODES -- Diagnosis -- reveals two large focally disrupted fatty nodes, 5.5 cm and 7.0 cm. sampling SURGICAL PATHOLOGY CONSULTATION fragments of fat, 5.0 x 3.0 x 1.8 cm in aggregate. The external unremarkable. The separate fat is focally fibrotic but otherwise [employer] GRADE GROUP (ISUP / WHO): 2 Santos Faye M.D. BILATERAL PELVIC LYMPH NODE DISSECTION prostate, 13-14 base of seminal vesicles and vasa deferentia Marlon ARIZMENDI, PROSTATE AND SEMINAL VESICLES Received in formalin Path Number: [id number] Patient Name: KYLEIGH ROSA Whalen PERCENT PATTERN 4 IN MADHU 7: 20% margins, 15-17 bladder neck margin perpendicular, 18 portion se is a 63 gram, 5.3 x 5.6 x 4.4 cm (L x W x H) prostate with attached SEMINAL VESICLE INVASION (MUSCLE WALL) (pT3b): Not identified CAP Prostate Med Rec: [id number] HISTOLOGIC TYPE: Adenocarcinoma, acinar (usual) type B. ROSA ARIZMENDI, BILATERAL PELVIC LYMPH NODES Received in formalin surfaces of the prostate are ragged pink-huitron with the right half inked ANATOMIC PATHOLOGY A: PROSTATE AND SEMINAL VESICLES TUMOR QUANTITATION: The adenocarcinoma is estimated to involve [facility] [place] [address] - BILATERAL SEMINAL VESICLES ARE NEGATIVE FOR NEOPLASM. Clinical Information LYMPH NODES unremarkable. Cassette summary: 1-3 apex margin perpendicular, Processing Lab: [facility] [address] [facility], - NEGATIVE FOR MALIGNANCY (0/2). PATHOLOGIC STAGE CLASSIFICATION: pT2 pN0 Gross Description induration. The seminal vesicles and vasa deferentia are grossly Pre-Op Diagnosis: PROSTATE CANCER Operation Performed: ROBOTIC LAPAROSCOPIC RADICAL PROSTATECTOMY, 4-6 cross section, 7-10 rim sections, 11-12 additional posterior B. BILATERAL PELVIC LYMPH NODES, RESECTION: (add TNM descriptors if applicable) B: BILATERAL PELVIC LYMPH NODES PROCEDURE: Radical prostatectomy with bilateral pelvic lymph node DISTANT METASTASIS: N/A [facility] - THE SURGICAL MARGINS ARE NEGATIVE FOR NEOPLASM. TREATMENT EFFECT: Not identified -NUMBER OF LYMPH NODES EXAMINED: 2 portion of the gland, predominantly on the right side, [place] [address] Cassette summary: 1-3 one node, 4-8 one node. 01/17/2025 INTRADUCTAL CARCINOMA: N/A - PROSTATIC ADENOCARCINOMA, MADHU SCORE 3+4= 7 (GRADE GROUP 2), approximately 10% of the gland volume. MARGINS: Negative Microscopic Description Reason For Referral No Information Medications Medication SIG (Take, Route, Frequency, Duration) Notes Start Date End Date Status Lipitor 40 MG 1 tablet Orally Once a day ActiveEliquis 5 MG1 table Orally twice a dayActivedilTIAZem HCl 120 MG1 tablet before meals Orally Three times a dayActiveAspirin 81 MG1 tablet Orally Daily ActiveMetoprolol Succinate 25 MG1 capsule Orally twice a dayActive Social History AUDIT-C (Standard) Question Answer Notes Did you have a drink containing alcohol in the p ast year? No Hngbzb1OjtzddlpwxdqigZwhhtpgsJrqxecq Notes: Quit smoking in 2005, Dips Quit smoking in 2004, Dips Quit smoking in 2004, Dips Quit smoking in 2004, Dips Quit smoking in 2005, Dips Quit smoking in 2005, Dips Problems Problem Type SNOMED Code ICD Code Onset Dates Problem Status W/U Status Risk Notes Problem Mixed hyperlipidemia (638307649) Mixed hy perlipidemia (E78.2) ActiveconfirmedProblemAtrial fibrillation (62301900)Unspecified atrial fibrillation (I48.91)ActiveconfirmedProblemChest pain (36954989)Chest pain (R07.9)ActiveconfirmedProblemAtrial fibrillation (18209240)Atrial fibrillation (I48.91)ActiveconfirmedProblemHyperlipidemia (77290265)Hyperlipidemia (E78.5) ActiveconfirmedProblemCoronary artery disease (42112873)Coronary artery disease (I25.10)ActiveconfirmedProblemEssential hypertension (56925853)Essential hypertension (I10)ActiveconfirmedProblemSyncope (687674635)Syncope (R55)Active confirmedProblemBenign prostatic hyperplasia (492618361)BPH (benign prostatic hyperplasia) (N40.0)ActiveconfirmedProblemAngina co-occurrent and due to coronary arteriosclerosis (41122702563348263)Coronary artery disease of [place] artery of [place] traverse heart with stable angina pectoris (I25.119)Activeconfirmed Vital Signs Heart Rate 91 /min 02/02/2025 Blood pressure qqrgzaqil98 mm Hg02/02/20251609Ypdkxdij90 %02/02/20250737Rnpsmp55.5 in 02/02/2025lood pressure vaplykkz347 mm Hg02/02/20257805Nlyimb000 lbs104/04/2024MI 32.14 kg/m202/02/2025 Procedures Procedure Date Ordered Date Performed Result Body Sit e Prostate Ultrasound with Biopsy 07/22/2024 07/25/2024 N/A EKG w Interp & Report - vljyfyaud66/20/2025N/A Encounters Encounter Location Date Provider Diagnosis Cardiology Margret Cleary [address] [facility] [address] [place] [address] 02/02/2025 Murrayt Evin Essential hypertensi on I10 ; Chest pain R07.9 and Unspecified atrial fibrillation I48.[address] [place] [address] 07/22/2024 Buck Milner Elevated prostate specific antigen (PSA) R97.20 and BPH (benign prostatic hyperplasia) N40.[address] [address] 09/08/2024 Buck Milner Assessments Encounter Date Diagnosis (ICD Code) Assessment Notes Treatment Notes Treatment Clinical Notes Section Notes 02/02/2025 Essential hypertension (ICD-10 - I10) Today's blood pressure 120/700/5BPH (benign prostatic hyperplasia) (ICD- 10 - N40.0)07/22/2024Elevated prostate specific antigen (PSA) (ICD-10 - R97.20) 02/02/2025Unspecified atrial fibrillation (ICD-10 - I48.91)A-fib heart rate under ndyfrnl3502/02/2025hest pain (ICD-10 - R07.9)At present no chest pain 02/02/2025Other Today he drove to my office He had robotic prostate surgery on 01/16/2025 and he is recovering At present he has frequency of micturition every 2 hours but no dysuria, no fever, and no chills No hematuria Hemodynamically stable Continue with current medication I am going to see him again in few weeks and we will arrange for his VITALY and cardioversion or ablation therapy. 07/22/2024Other MRI fusion for PIRADS-5 lesion. Cipro called in. Plan Of Treatment Pending Test Test Name Order Date EKG w Interp & Report - performed 2022 EKG w Interp & Report - performed 2023 EKG w Interp & Report - performed 2024 Surgical Pathology ([facility]) 01/16/2025 TYPE + SCREEN 01/02/2025 URINE CULTURE 01/02/2025 CREGP 05/28/2024 MRI PROSTATE W WO CONTRAST 05/30/2024 Next Appt Details Provider Name:Jaye Cleary , 03/31/2025 11:00:00 AM, [address], [address], [place], [address], Insurance Providers Payer Name Payer Address Payer Phone Subscriber Number Group Number Insured Name Patient Relationship to Insured Coverage Start Date Coverage End Date [employer] [address] [address] [place] [address] [id number] Rosa Arizmendi Self - patient is the insured Medical (General) History Medical History History ICD Code Coronary Artery Disease HypertensionHyperlipidemiaAtrial rywkspewrwjoG67.91Surgical History Surgery Date(Month/Year) Prostatectomy 01/2025 ankle surgery Hernia surgery x 2Left ankle surgeryHistory of Cardiac Catherization with stent placement to the RCA-04/2004Hospitalization History Reason Date(Month/Year) New onset of A-fib 12/2024
--- OUTSIDE RECORDS SUMMARY | 2025-03-14 11:26 | XMS_ITS | Encounter Summary ---
Author Organization [facility] Address [address], [address] [place] [address] Care Team Providers Care [place] Attorney Name Role Phone Ari Pagan DO Primary Care Provider [phone] Reason for Visit * ReasonCommentsMedication Refill Encounter Details DateTypeDepartmentCare Team (Latest Contact Info)Fsgrmtotwgg55/22/2025Refill [facility] [place] [address] [place] [phone] Shireen Sutton MD [address] [place] [address] Medication Refill Social History Tobacco UseTypesPacks/DayYears UsedDateSmoking Tobacco: FormerSmokeless [...] were you homeless or living in a half-way (including now)?No01/02/2025Hunger Vital SignAnswerDate RecordedWithin the past [...] Domain Source: IP Abuse Screening AnswerDate RecordedPhysical nwoosQmizjh04/03/2025Verbal eictwNuqufo36/03/2025 Emotional xylsxLdndfc35/03/2025Financial yyghqFuykoc78/03/2025Sexual abuseDenies 01/16/2025Sex and Gender InformationValueDate RecordedSex [facility]igned [facility] 05/12/2024 9:47 AM ESTLegal FxlBrjo1707/04/2014 3:38 PM EDTGender IdentityNot on fileSexual OrientationNot on filedocumented as of this encounter Plan of Treatment Not on file documented as of this encounter Visit Diagnoses Not on filedocumented in this encounter Care Teams Team MemberRelationshipSpecialtyStart DateEnd Date Ari Pagan DO PCP - GeneralInternal Medicine03/24/18documented as of this encounter
--- OUTSIDE RECORDS SUMMARY | 2025-03-14 11:26 | XMS_ITS | Encounter Summary ---
Author Organization [facility] Address [address], [address] [place] [address] Care Team Providers Care Pathology Assistant Name Role Phone Ari Pagan DO Primary Care Provider [phone] Encounter Details DateTypeDepartmentCare Team (Latest Contact Info)Vqlmasexwtu72/17/2025Travel Social History Tobacco UseTypesPacks/DayYears UsedDateSmoking Tobacco: FormerSmokeless [...] were you homeless or living in a care home (including now)?No01/02/2025Hunger Vital SignAnswerDate RecordedWithin the past [...] Domain Source: IP Abuse Screening AnswerDate RecordedPhysical mcqynFoktkb54/03/2025Verbal wucghLrothl96/03/2025 Emotional hoimcUwpkbm46/03/2025Financial ybxzsYqjqzi86/03/2025Sexual abuseDenies 01/16/2025Sex and Gender InformationValueDate RecordedSex Assigned at BirthMale 05/12/2024 9:47 AM ESTLegal YifGdwb6807/04/2014 3:38 PM EDTGender IdentityNot on fileSexual OrientationNot on filedocumented as of this encounter Plan of Treatment Not on file documented as of this encounter Visit Diagnoses Not on filedocumented in this encounter Care Teams Team MemberRelationshipSpecialtyStart DateEnd Date Ari Pagan DO PCP - GeneralInternal Medicine03/24/18documented as of this encounter
--- OUTSIDE RECORDS SUMMARY | 2025-03-14 11:26 | XMS_ITS | Clinical Summary ---
Author Organization [facility] Address [address], [address] [place] [address] Care Team Providers Care Cook Box Filler Name Role Phone Ari Pagan DO Primary Care Provider [phone] Allergies No known active allergies Medications MedicationSigDispense QuantityRefillsLast FilledStart DateEnd DateStatus aspirin 81 MG EC tablet Take 1 tablet by mouth dailyActive atorvastatin (LIPITOR) 40 MG tablet Take 1 tablet by mouth dailyActive fluticasone (FLONASE) 50 MCG/ACT nasal spray 1-2 sprays by Nasal route as needed for RhinitisActive tamsulosin (FLOMAX) 0.4 MG capsule Take 1 capsule by mouth daily 90 capsule 5Active Additional Information Patient taking differently:0.4 mg OralEVERY BEDTIME, Reported on 01/16/2025 bicalutamide (CASODEX) 50 MG chemo tablet Take 1 tablet by mouth nightlyActive acetaminophen (TYLENOL) 500 MG tablet Take 2 tablets by mouth every 6 hours as needed for PainActive apixaban (ELIQUIS) 5 MG TABS tablet Take 1 tablet by mouth 2 times daily 60 tablet 5Active lisinopril (PRINIVIL;ZESTRIL) 5 MG tablet Take 4 tablets by mouth daily 120 tablet 5Active metoprolol tartrate (LOPRESSOR) 25 MG tablet Take 1 tablet by mouth 2 times daily 60 tablet 5Active dilTIAZem (CARDIZEM CD) 120 MG extended release capsule Take 1 capsule by mouth daily 30 capsule 5Active docusate sodium (COLACE) 100 MG capsule Take 1 capsule by mouth 2 times daily 60 capsule 5104/18/2024Expired cephALEXin (KEFLEX) 500 MG capsule Take 1 capsule by mouth 2 times daily for 5 days 10 capsule 5105/07/2024Expired Active Problems ProblemNoted DateDiagnosed DateAtrial fibrillation with RVR1Open bimalleolar fracture of left ankle01/03/2015 Encounters DateTypeDepartmentCare MndmQergsrlkgqw51/17/2025 3:10 AM EST - 03/01/2025 6:03 AM [facility] Emergency Department [address] [place] [address] Zulma Maya DO Acute cystitis with hematuria (Primary Dx) Discharge Disposition: Home or Self Care03/01/20259684Lvqcpo20/16/2025 7:30 PM EST - 02/28/2025 11:59 PM ESTHospital Encounter [facility] [address] [place] [address] Discharge Disposition: Home or Self Care01/16/2025 8:09 AM ESTAnesthesia Event [facility] [place] [address] [place] [address] Padmini Godoy MD Sobhanie, Mohammad-Safa E, MD 01/16/2025 8:00 AM EST - 01/16/2025 11:00 AM ESTSurgery [facility] [place] [address] [place] [address] Buck Milner MD RADICAL PROSTATECTOMY LAPAROSCOPIC ROBOTIC XI WITH BILATERAL PELVIC LYMPH NODE LOWANRPFJU35/03/2025 5:52 AM EST - 01/16/2025 2:55 PM ESTHospital [place]counter [facility] [place] [address] [place] [address] Buck Milner MD Prostate CA (HCC) Discharge Disposition: Home or Self Care01/16/20252268Hhkepr11/30/2025bstract [facility] Cardiology [address] [place] [address] Carolynn Crooks MD 01/06/2025bstract [facility] Cardiology [address] [place] [address] Carolynn Crooks MD 01/04/2025 7:47 AM EDT - 01/06/2025 11:59 PM EDTHospital Encounter [facility] Non[facility]In[facility] Cardiology [address] [place] [address] Discharge Disposition: Home or Self Care01/04/2025Refill [facility] [address] [place] [address] Shireen Sutton MD Medication Giesic2501/02/2025 12:36 PM EDT - 01/04/2025 4:43 PM EDTHospital Encounter [facility] [address] [place] [address] Zulma Maya DO Dogra, Vallabh, MD Ahuja, Kanika, MD Atrial fibrillation with RVR (HCC) (Primary Dx); New onset atrial fibrillation (HCC); Atrial fibrillation, unspecified type (HCC); Chest pain, unspecified type Discharge Disposition: Home or Self Care01/02/2025 10:53 AM EDT - 01/06/2025 11:59 PM EDTHospital Encounter [facility] [address] [place] [address] Preop testing (Primary Dx) Discharge Disposition: Home or Self Care01/02/2025Orders Only [facility] [address] [place] [address] [address] [place] [address] 01/02/2025Travelfrom Last 3 Months Immunizations ImmunizationAdministration DatesNext DueTDaP, ADACEL (age 10y-64y), BOOSTRIX (age 10y+), IM, 0.5mL01/01/2015 Family History Medical HistoryRelationNameCommentsHeart DiseaseFatherDiabetesMotherHeart DiseaseMotherLung CancerMotherRelationNameStatusCommentsFatherMother Social History Tobacco UseTypesPacks/DayYears UsedDateSmoking Tobacco: FormerSmokeless [...] were you homeless or living in a assisted (including now)?No01/02/2025Hunger Vital SignAnswerDate RecordedWithin the past [...] Domain Source: IP Abuse Screening AnswerDate RecordedPhysical dcfbpTiieus60/03/2025Verbal wxaiqLiwrmi64/03/2025 Emotional krirfWrvvwj86/03/2025Financial iqbxfWqojzi99/03/2025Sexual abuseDenies 01/16/2025Sex and Gender InformationValueDate RecordedSex Assigned at BirthMale 05/12/2024 9:47 AM ESTLegal IhuEoef4007/04/2014 3:38 PM EDTGender IdentityNot on fileSexual OrientationNot on file Last Filed Vital Signs Vital SignReadingTime TakenCommentsBlood Cdkkapky846/9103/01/2025 4:10 AM EST Ugpfm0025/17/2025 6:00 AM XLNGnaoycragnc30.7 ??C (98 ??F)03/01/2025 6:00 AM EST Respiratory Pizv1020/ 3:11 AM ESTOxygen Fsviqlxjoc48%03/01/2025 5:39 AM ESTInhaled Oxygen Concentration--Ioirce701.1 kg (245 lb)03/01/2025 3:11 AM EST Kyilck144 cm (6' 2 )03/01/2025 3:11 AM ESTBody Mass Index31.4603/01/2025 3:11 AM EST Plan of Treatment Health MaintenanceDue DateLast WfvmEnlxueugAluloz09/08/1971Depression Screen 1972HIV qzrfpp7707/22/1975Hepatitis C abwcmu1407/21/1978Diabetes screen 07/22/1995Prostate Specific Antigen (PSA) Screening or Bfbhxxhbmw49/08/2001 FIT/FOBT: Average risk2005Fecal-DNA (Cologuard): Average risk2005 Sigmoidoscopy/CT ksalyqwcpczj94/08/2006Pneumococcal 50+ years Vaccine (1 of 1 - PCV)2010Shingles vaccine (1 of 2)2010Respiratory Syncytial Virus (RSV) or age 60 yrs+ (1 - Risk 60-74 years 1-dose series)2020 COVID-19 Vaccine (3 - Pfizer risk series)/, 06/04/2020Flu vaccine (#1)DTaP/Tdap/Td vaccine (5 - Td or Tdap)01/19/2030 01/20/2020, 01/20/2020, 01/01/2015, Additional history existsColonoscopy /03/2023, 11/16/2018Colorectal Cancer Kwqecj3006/14/2033Hepatitis A vaccineAged OutNo longer eligible based on patient's age to complete this topic Hepatitis B vaccineAged OutNo longer eligible based on patient's age to complete this topicHib vaccineAged OutNo longer eligible based on patient's age to complete this topicMeningococcal (ACWY) vaccineAged OutNo longer eligible based on patient's age to complete this topicMeningococcal B vaccineAged OutNo longer eligible based on patient's age to complete this topicPolio vaccineAged OutNo longer eligible based on patient's age to complete this topic Medical Devices ImplantedTypeAreaManufacturerDevice IdentifierShelf Expiration DateModel / Serial / LotImpl Mesh Parietex Progrip [id number] Implanted:Qty: 1 on 12/24/2018 by Julio C Connolly IV, DO at [facility] SURGICAL-PMM06/14/[id number] / / [id number] Procedures Procedure NamePriorityDate/TimeAssociated DiagnosisCommentsCT ABDOMEN PELVIS W IV AOFWRDRSSVTX90/17/2025 4:29 AM EST MICROSCOPIC ETPVGZLGFUQkpqqow27/17/2025 3:58 AM EST URINALYSIS WITH REFLEX TO CULTUREStat Sunquest Label 03/01/2025 3:58 AM EST CULTURE, NMJFLDxfzzdq32/17/2025 3:58 AM EST APTTStat [employer]quest Label print03/01/2025 3:45 AM EST PROTIME-INRStat [employer]quest Label 03/01/2025 3:45 AM EST COMPREHENSIVE METABOLIC PANELStat [employer]quest Label 03/01/2025 3:45 AM EST CBC WITH AUTO DIFFERENTIALStat Sunquest Label print03/01/2025 3:45 AM EST BASELINE DIAGNOSTIC SLEEP MQUYMPmdccrw21/16/2025XR CHEST SDHFNUXSFSTI79/03/2025 12:25 PM EST SURGICAL PATHOLOGY ARDJZOZgrsvpy59/03/2025 10:34 AM EST LA LAPS SURG BILATERAL TOTAL PELVIC ZZYPLQPZLGMX66/03/2025 8:09 AM EST Prostate CA (HCC) LA LAPS SURG ZNCT5ALP RPBIC RAD W/NRV SPARING ROBOT01/16/2025 8:09 AM EST Prostate CA (HCC) NM LEXISCAN STRESS TEST W/ MYOCARDIAL JQNLTXMGWKepdffu33/22/2025 11:34 AM EDT Chest pain, unspecified type CBC WITH AUTO XXCPBPLZVTNNTmaspqx16/22/2025 6:30 AM EDT BASIC METABOLIC PANEL W/ REFLEX TO MG FOR LOW IYogwled68/22/2025 6:30 AM EDT ANTI-XA, EDSURUPSpanx45/21/2025 1:04 PM EDT ECHO (TTE) COMPLETE W/ NAGDIJKMCPTI03/21/2025 9:54 AM EDT Atrial fibrillation, unspecified type (HCC) ANTI-XA, TPARHKIQrmqk74/21/2025 6:23 AM EDT CBC WITH AUTO EBVGDMNJFIOCDtewcso63/21/2025 6:23 AM EDT BASIC METABOLIC PANEL W/ REFLEX TO MG FOR LOW LZkrlnjs76/21/2025 6:23 AM EDT ANTI-XA, EQCRCSCYprcd04/21/2025 12:31 AM EDT ANTI-XA, IYAYIMRMnlgo09/20/2025 3:30 PM EDT APTTStat Sunquest Label print01/02/2025 3:30 PM EDT TSH REFLEX TO KV8Bhqi Sunquest Label print01/02/2025 1:03 PM EDT MAGNESIUMStat Sunquest Label print01/02/2025 1:03 PM EDT COMPREHENSIVE METABOLIC PANELStat Sunquest Label print01/02/2025 1:03 PM EDT CBC WITH AUTO DIFFERENTIALStat Sunquest Label print01/02/2025 1:03 PM EDT EKG 12-WRZRSQTZ50/20/2025 12:44 PM EDT EKG 12-CQAGNovkepb90/20/2025 11:29 AM EDT TYPE AND VOVULLNbtuvjh18/20/2025 11:20 AM EDT Preop testing OPJHxxjslg29/20/2025 11:20 AM EDT Preop testing BASIC METABOLIC MZIZGJqvkuez60/20/2025 11:20 AM EDT Preop testing CULTURE, JNDGYByyxppf32/20/2025 11:20 AM EDT from Last 3 Months Results * CT ABDOMEN PELVIS W IV [...] related to recent surgery. Authorizing ProviderResult TypeResult StatusMansour Jess Maya I, [facility] ORDERABLESFinal Result * (ABNORMAL) Urinalysis with Reflex to Culture (03/01/2025 3:58 AM EST)Component ValueRef RangeTest MethodAnalysis TimePerformed AtPathologist SignatureColor, UAOrange(A)Ibaizv7403/01/2025 3:[address] [facility] Turbidity UATurbid(A)Clear03/01/2025 3:[address] [facility] LABGlucose, UrNEGATIVENEGATIVE mg/dL03/01/2025 3:[address] [facility] LABBilirubin, UrinePresumptive positive. Unable to confirm due to unavailability of reagent.(A)OIPEWGYE82/17/2025 3:58 AM EST [facility] LABKetones, UrineNEGATIVENEGATIVE mg/dL 03/01/2025 3:[address] [facility] LABSpecific [place], UA1.0211.000 - 1.9655903/01/2025 3:[address] [facility] LABUrine HgbLARGE(A)HYTDXNVF22/17/2025 3:[address] [facility] LABpH, Urine5.05.0 - 8.012 3:[address] [facility] LABProtein, UA2+(A)NEGATIVE mg/dL03/01/2025 3:[address] [facility] LABUrobilinogen, UrineNormal0.0 - 1.0 EU/dL 03/01/2025 3:[address] [facility] LABNitrite, Urine UGEZQCKKPJKVMGHH34/17/2025 3:[address] [facility] Leukocyte Esterase, UrineMOD(A)YUTIBIHE91/17/2025 3:[address] [facility] LABSpecimen (Source)Anatomical Location / Laterality Collection Method / VolumeCollection TimeReceived TimeURINE SPECIMEN / Unknown 03/01/2025 3:58 AM EST03/01/2025 4:01 AM EST Narrative Authorizing ProviderResult TypeResult StatusMansour HARITHA Lino ORDERABLESFinal ResultPerforming OrganizationAddressCity/State/ZIP CodePhone Number [facility] [address] [phone] * (ABNORMAL) Microscopic Urinalysis (03/01/2025 3:58 AM EST)ComponentValueRef RangeTest MethodAnalysis TimePerformed AtPathologist SignatureWBC, UATOO NUMEROUS TO COUNT(A)0 TO 5 /HPF03/01/2025 3:[address] [facility] LABRBC, UATOO NUMEROUS TO COUNT(A)0 TO 2 /HPF03/01/2025 3:58 AM EST [facility] LABCasts UA0 TO 2(A)None /LPF105/02/2024 3:[address] [facility] LABCasts UAHYALINE(A)None /LPF 03/01/2025 3:[address] [facility] LABEpithelial Cells, UA0 TO 2/HPF03/01/2025 3:[address] [facility] Bacteria, UAFEW(A)None03/01/2025 3:[address] [facility] LABSpecimen (Source)Anatomical Location / LateralityCollection Method / Volume Collection TimeReceived Time03/01/2025 3:58 AM EST03/01/2025 4:01 AM EST Narrative Authorizing ProviderResult TypeResult StatusZulma Patel DOURINE ORDERABLESFinal ResultPerforming OrganizationAddressCity/State/ZIP CodePhone Number [facility] [address] [place] [address], [facility] [phone] * (ABNORMAL) Culture, Urine (03/01/2025 3:58 AM EST) Only the most recent of2 resultswithin the time period is included. ComponentValueRef RangeTest MethodAnalysis TimePerformed AtPathologist Signature Specimen Description.CLEAN CATCH URINE03/01/2025 3:58 AM [employer] CultureSTAPHYLOCOCCUS AUREUS >100,000 CFU/ML This isolate is methicillin susceptible.(A)03/01/2025 3:58 AM [employer] LABORATORIESSpecimen (Source) Anatomical Location / LateralityCollection Method / VolumeCollection Time Received TimeURINE SPECIMEN / Qkivcoc1203/01/2025 3:58 AM EST03/01/2025 4:01 AM EST Narrative [...] PANEL FARA <=10: Sensitive Authorizing ProviderResult TypeResult StatusMansmitha Patel DO MICROBIOLOGY - GENERAL ORDERABLESFinal ResultPerforming OrganizationAddress City/State/ZIP CodePhone Number [facility] [address] [place] [address], [facility] [phone] [employer] [address] [place] [address] * (ABNORMAL) CBC with Auto Differential (03/01/2025 3:45 AM EST) Only the most recent of4 resultswithin the time period is included. ComponentValueRef RangeTest MethodAnalysis TimePerformed AtPathologist Signature WBC8.23.5 - 11.0 k/uL03/01/2025 3:[address] [facility] RBC5.054.21 - 5.77 m/uL03/01/2025 3:[address] [facility] AMSMakakhmcuo01.913.5 - 17.5 g/dL03/01/2025 3:[address] [facility] UKLBdfqceomqi56.041.0 - 53.0 %03/01/2025 3:[address] [facility] GGJUJC36.180.0 - 100.0 fL03/01/2025 3:[address] [facility] ARVKCH57.526.0 - 34.0 pg03/01/2025 3:[address] [facility] KUNMFMF31.631.0 - 37.0 g/dL03/01/2025 3:[address] [facility] VQJKAY55.211.5 - 14.9 %03/01/2025 3:[address] [facility] NAVLnsnngvtl188478 - 450 k/uL03/01/2025 3:[address] [facility] LABMPV9.28.0 - 13.5 fL03/01/2025 3:[address] [facility] LABNRBC Automated0.00 per 100 WBC03/01/2025 3:[address] [facility] LABNeutrophils %5936 - 66 %03/01/2025 3:[address] [facility] LABLymphocytes %2924 - 44 %03/01/2025 3:[address] [facility] LABMonocytes %93 - 12 %03/01/2025 3:[address] [facility] LABEosinophils %20 - 4 %03/01/2025 3:[address] [facility] LABBasophils %00 - 2 %03/01/2025 3:[address] [facility] LABImmature Granulocytes %1(H)0 % 03/01/2025 3:[address] [facility] LABNeutrophils Absolute 4.791.50 - 8.10 k/uL03/01/2025 3:[address] [facility] Lymphocytes Absolute2.401.10 - 3.70 k/uL03/01/2025 3:[address] [facility] LABMonocytes Absolute0.700.10 - 1.20 k/uL03/01/2025 3:45 AM EST [facility] LABEosinophils Absolute0.190.00 - 0.44 k/uL 03/01/2025 3:[address] [facility] LABBasophils Absolute 0.030.00 - 0.20 k/uL03/01/2025 3:[address] [facility] Immature Granulocytes Absolute0.050.00 - 0.30 k/uL03/01/2025 3:[address] [facility] LABSpecimen (Source)Anatomical Location / Laterality Collection Method / VolumeCollection TimeReceived TimeBloodBLOOD SPECIMEN / Rlnyugm4603/01/2025 3:45 AM EST03/01/2025 3:59 AM EST Narrative Authorizing ProviderResult TypeResult StatusMansour Jess Maya I, DO HEMATOLOGY ORDERABLESFinal ResultPerforming OrganizationAddressCity/State/ZIP CodePhone Number [facility] [address] [place] [address], [facility] [phone] * APTT (03/01/2025 3:45 AM EST) Only the most recent of2 resultswithin the time period is included. ComponentValueRef RangeTest MethodAnalysis TimePerformed AtPathologist Signature APTT28.524.0 - 36.0 sec03/01/2025 3:[address] [facility] LABComment: ? IV Heparin Therapy Range: ?62.0-94.0 ? Specimen (Source)Anatomical Location / LateralityCollection Method / Volume Collection TimeReceived TimeBloodBLOOD SPECIMEN / Wlkqhmq5803/01/2025 3:45 AM EST 03/01/2025 3:59 AM EST Narrative Authorizing ProviderResult TypeResult StatusMansokaurna Maya I, DO HEMATOLOGY ORDERABLESFinal ResultPerforming OrganizationAddressCity/State/ZIP CodePhone Number [facility] [address] [place] [address], [facility] [phone] * (ABNORMAL) Protime-INR (03/01/2025 3:45 AM EST)ComponentValueRef RangeTest MethodAnalysis TimePerformed AtPathologist HmiqgdmzzYzfyfva63.1(H)11.8 - 14.6 sec03/01/2025 3:[address] [facility] LABINR1. 3:[address] [facility] LABComment: ? Therapeutic Range: Moderate Anticoagulant Intensity: INR = 2.0-3.0 High Anticoagulant Intensity: INR = 2.5-3.5 Specimen (Source)Anatomical Location / LateralityCollection Method / Volume Collection TimeReceived TimeBloodBLOOD SPECIMEN / Ozivhge2903/01/2025 3:45 AM EST 03/01/2025 3:59 AM EST Narrative Authorizing ProviderResult TypeResult StatusMankaruna Maya I, DO HEMATOLOGY ORDERABLESFinal ResultPerforming OrganizationAddressty/State/ZIP CodePhone Number [facility] [address] [place] [address], [facility] [phone] * (ABNORMAL) Comprehensive Metabolic Panel (03/01/2025 3:45 AM EST) Only the most recent of2 resultswithin the time period is included. ComponentValueRef RangeTest MethodAnalysis TimePerformed AtPathologist Signature Rcbjqy930903 - 145 mmol/L105/02/2024 3:[address] [facility] LABPotassium4.23.7 - 5.3 mmol/L105/02/2024 3:[address] [facility] DIQYtlvwvqh84775 - 107 mmol/L105/02/2024 3:[address] [facility] YRPUH45540 - 31 mmol/L105/02/2024 3:[address] [facility] LABAnion Gap99 - 16 mmol/L105/02/2024 3:[address] [facility] PDBZtvcdfn434(H)74 - 99 mg/dL03/01/2025 3:[address] [facility] HRKBVX396 - 23 mg/dL03/01/2025 3:[address] [facility] LABCreatinine1.00.7 - 1.2 mg/dL03/01/2025 3:[address] [facility] LABEst, Glom Filt Rate84>60 mL/min/1.73m2 03/01/2025 3:[address] [facility] LABComment: ? These results are not [...] secretion. Calcium9.48.6 - 10.4 mg/dL03/01/2025 3:[address] [facility] LABTotal Protein6.4(L)6.6 - 8.7 g/dL03/01/2025 3:[address] [facility] LABAlbumin4.23.5 - 5.2 g/dL03/01/2025 3:[address] [facility] LABTotal Bilirubin0.80.0 - 1.2 mg/dL03/01/2025 3:[address] [facility] LABAlkaline Gstucsvgiue17341 - 129 U/L 03/01/2025 3:[address] [facility] UPQNQF7692 - 50 U/L 03/01/2025 3:[address] [facility] BMVGYP7572 - 50 U/L 03/01/2025 3:[address] [facility] LABSpecimen (Source) Anatomical Location / LateralityCollection Method / VolumeCollection Time Received TimeBloodBLOOD SPECIMEN / Empytsa7703/01/2025 3:45 AM EST03/01/2025 3:59 AM EST Narrative Authorizing ProviderResult TypeResult StatusMansour Jess Maya I, CHEMISTRY ORDERABLESFinal ResultPerforming OrganizationAddressCity/State/ZIP CodePhone Number [facility] [address] [place] [address], [facility] [phone] * Baseline Diagnostic Sleep Study (02/28/2025)Specimen (Source)Anatomical Location / LateralityCollection Method / VolumeCollection TimeReceived Time 02/28/2025 Narrative Authorizing ProviderResult TypeResult StatusBenjamin Salado [facility] ORDERABLESEdited Result - FinalPerforming OrganizationAddressCity/State/ZIP Code Phone Number [facility] SLEEP * XR CHEST PORTABLE (01/16/2025 12:25 PM EST)Anatomical RegionLateralityModality ChestComputed RadiographySpecimen (Source)Anatomical Location / Laterality Collection Method / VolumeCollection TimeReceived Time01/16/2025 12:34 PM EST Impressions 01/16/2025 12:35 PM EST Probable subsegmental atelectasis at the lung bases Otherwise, no acute cardiopulmonary process Narrative 01/16/2025 12:35 PM EST EXAMINATION: ONE XRAY VIEW OF THE CHEST 01/16/2025 12:15 pm COMPARISON: None. HISTORY: ORDERING SYSTEM PROVIDED HISTORY: post op TECHNOLOGIST PROVIDED HISTORY: post op hypoxemia FINDINGS: Bibasilar linear opacities. ??There is no effusion or pneumothorax. The cardiomediastinal silhouette is without acute process. The osseous structures are without acute process. Procedure Note Berny Murillo MD - 01/16/2025 EXAMINATION: ONE XRAY VIEW OF THE CHEST 01/16/2025 12:15 pm COMPARISON: None. HISTORY: ORDERING SYSTEM PROVIDED HISTORY: post op TECHNOLOGIST PROVIDED HISTORY: post op hypoxemia FINDINGS: Bibasilar linear opacities. There is no effusion or pneumothorax. The cardiomediastinal silhouette is without acute process. The osseousstructures are without acute process. IMPRESSION: Probable subsegmental atelectasis at the lung bases Otherwise, no acute cardiopulmonary process Authorizing ProviderResult TypeResult StatusSaebom Walt [facility] ORDERABLESFinal Result * SURGICAL PATHOLOGY REPORT (01/16/2025 10:34 AM EST)ComponentValueRef RangeTest MethodAnalysis TimePerformed AtPathologist SignatureSurgical Pathology Report Path Number: [id number] -- Diagnosis -- A. ??PROSTATE GLAND AND SEMINAL VESICLES, RADICAL PROSTATECTOMY: - PROSTATIC ADENOCARCINOMA, MADHU SCORE 3+4= 7 (GRADE GROUP 2), LIMITED TO THE PROSTATE GLAND. - THE SURGICAL MARGINS ARE NEGATIVE FOR NEOPLASM. - BILATERAL SEMINAL VESICLES ARE NEGATIVE FOR NEOPLASM. - BENIGN PERIPROSTATIC ADIPOSE TISSUE. B. ??BILATERAL PELVIC LYMPH NODES, RESECTION: - NEGATIVE FOR MALIGNANCY (0/2). Santos Faye M.D. Electronically Signed Out ? [facility]/01/17/2025 Clinical Information Pre-Op Diagnosis: ??PROSTATE CANCER Operative Findings: ??PROSTATE AND SEMINAL VESICLES; BILATERAL PELVIC LYMPH NODES Operation Performed: ??ROBOTIC LAPAROSCOPIC RADICAL PROSTATECTOMY, BILATERAL PELVIC LYMPH NODE DISSECTION se Source of Specimen A: PROSTATE AND SEMINAL VESICLES B: BILATERAL PELVIC LYMPH NODES Gross Description A. ?? ROSA ARIZMENDI, PROSTATE AND SEMINAL VESICLES Received in formalin is a 63 gram, 5.3 x 5.6 x 4.4 cm (L x W x H) prostate with attached focally disrupted seminal vesicles and vasa deferentia. ??Separate are fragments of fat, 5.0 x 3.0 x 1.8 cm in aggregate. ??The external surfaces of the prostate are ragged pink-huitron with the right half inked blue, left half black and anterior aspect tagged green. ??Sectioning reveals periurethral nodules and in the posterior aspect in the mid portion of the gland, predominantly on the right side, there is faint induration. ??The seminal vesicles and vasa deferentia are grossly unremarkable. ??The separate fat is focally fibrotic but otherwise unremarkable. ??Cassette summary: ?? 1-3 apex margin perpendicular, 4-6 cross section, 7-10 rim sections, 11-12 additional posterior prostate, 13-14 base of seminal vesicles and vasa deferentia margins, 15-17 bladder neck margin perpendicular, 18 portion separate fat. B. ?? ROSA ARIZMENDI, BILATERAL PELVIC LYMPH NODES Received in formalin are fragments of fat, 7.0 x 4.0 x 2.0 cm in aggregate. ??Sectioning reveals two large focally disrupted fatty nodes, 5.5 cm and 7.0 cm. Cassette summary: ?? 1-3 one node, 4-8 one node. ??tm Nurys Jesse/se:01/16/2025 Microscopic Description A, B. PROCEDURE: Radical prostatectomy with bilateral pelvic lymph node sampling ? HISTOLOGIC TYPE: Adenocarcinoma, acinar (usual) type ? HISTOLOGIC GRADE (MADHU SCORE): 3+4 = 7 ?? GRADE GROUP (ISUP / WHO): 2 PERCENT PATTERN 4 IN MADHU 7: 20% TERTIARY PATTERN 5 (LESS THAN 5%) IN ??OVERALL MADHU SCORE 7 (IF APPLICABLE): N/A INTRADUCTAL CARCINOMA: N/A -IDC INCORPORATED INTO GRADE: N/A CRIBRIFORM GLANDS: Present, focal TREATMENT EFFECT: Not identified ? TUMOR QUANTITATION: The adenocarcinoma is estimated to involve approximately 10% of the gland volume. ? EXTRAPROSTATIC EXTENSION (pT3a): Not identified ? URINARY BLADDER NECK INVASION (pT3a): Not identified ? SEMINAL VESICLE INVASION (MUSCLE WALL) (pT3b): Not identified LYMPHOVASCULAR INVASION: Not identified ?? MARGINS: Negative ? REGIONAL LYMPH NODES -NUMBER OF LYMPH NODES EXAMINED: 2 ? -NUMBER WITH METASTASIS: 0 ? DISTANT METASTASIS: N/A PATHOLOGIC STAGE CLASSIFICATION: ??pT2 pN0 (add TNM descriptors if applicable) [facility] Prostate Processing Lab: ??[address] [address] Interpretation Performed at [address] [address] SURGICAL PATHOLOGY CONSULTATION Patient Name: ROSA ARIZMENDIAmber [facility] Rec: [id number] [facility] ??[facility] ANATOMIC PATHOLOGY [address] [place] [address]. ??[place], [place] [address] bon [facility] LABSSpecimen (Source)Anatomical Location / LateralityCollection Method / VolumeCollection TimeReceived Time 01/16/2025 10:34 AM EST01/16/2025 12:00 PM EST Narrative Authorizing ProviderResult TypeResult StatusBradley [facility] MDPATHOLOGY/CYTOLOGY ORDERABLESFinal ResultPerforming OrganizationAddressCity/State/ZIP CodePhone Number [facility] [address] [place] [address], [facility] [phone] [facility] * NM LEXISCAN STRESS TEST W/ MYOCARDIAL PERFUSION (01/04/2025 11:34 AM EDT) ComponentValueRef RangeTest MethodAnalysis TimePerformed AtPathologist SignatureBody Surface Area2.97s6VQAX CV RPACS STRESSStress Systolic WF244dfHv BSMH CV RPACS STRESSStress Diastolic DM53voKaBQHK CV RPACS STRESSBaseline HR91 BPMBSMH CV RPACS STRESSStress Peak VZ906JTOEYMD CV RPACS STRESSStress Estimated Workload1.0METSBSMH CV RPACS STRESSStress Rate Pressure Product 14,514BPM*mmHgBSMH CV RPACS STRESSStress Target NH531qvnDEPH CV RPACS STRESS Stress Percent HR Jkujnwjg71%BS[facility] CV RPACS STRESSBaseline Systolic AJ547tdCk [facility] CV RPACS STRESSBaseline Diastolic CO58xxMpEDVO CV RPACS STRESSRecovery Stage 1 Oyzkqyhp4fzy:secBSMH CV RPACS STRESSRecovery Stage 1 GC623eyrFIRL CV RPACS STRESSRecovery Stage 1 BP103/75mmHgBSMH CV RPACS STRESSRecovery Stage 2 Itdvexjt6xfr:secBSMH CV RPACS STRESSRecovery Stage 2 QO076bdzGYRF CV RPACS STRESSRecovery Stage 2 BP110/84mmHgBSMH CV RPACS STRESSRecovery Stage 3 Fyzjnpxg6bed:secBSMH CV RPACS STRESSRecovery Stage 3 RZ88tpkXQLV CV RPACS STRESSRecovery Stage 3 BP130/88mmHgBSMH CV RPACS STRESSRecovery Stage 4 Kjsxymfo0fzy:secBSMH CV RPACS STRESSRecovery Stage 4 KJ02kwyZVDT CV RPACS STRESSRecovery Stage 4 BP116/79mmHgBSMH CV RPACS STRESSAnatomical Region LateralityModalityNuclear MedicineSpecimen (Source)Anatomical Location / LateralityCollection Method / VolumeCollection TimeReceived Time01/04/2025 10:34 AM EDT Impressions 01/05/2025 7:35 AM EDT 1. Normal myocardial perfusion. No evidence of ischemia. 2. Normal left ventricular systolic function EF 57%. 3. Low risk stratification. Narrative 01/05/2025 7:35 AM EDT Stress ECG: There were no arrhythmias during stress. Arrhythmias during recovery: rare PVCs. No significant ST-T wave changes with stress or recovery. The stress ECG was negative for ischemia. ?Resting??ECG: The ECG shows atrial fibrillation. T wave flattening in V1. ?Stress??Test: A pharmacological stress test was performed using regadenoson (Lexiscan). The patient reported SOB during the stress test. The patient reached the end of the protocol. EXAM: MYOCARDIAL PERFUSION IMAGING 01/04/2025 11:34:00 AM RADIOPHARMACEUTICAL: Rest dose: 13.3 mCi Tc-99m sestamibi Stress dose: 31 mCi Tc-99m sestamibi TECHNIQUE: Under cardiology supervision, 0.4 mg Lexiscan was infused intravenously prior to intravenous injection of the stress dose. SPECT imaging was acquired following the intravenous injection of the sestamibi. ECG gating was obtained following the stress acquisition. Prone stress images are also obtained. COMPARISON: None Available. CLINICAL HISTORY: Chest Pain, unspecified. FINDINGS: Perfusion: Image quality is good with no significant attenuation artifact. There are no fixed or reversible perfusion defects. Summed stress score (SSS): 0 Summed rest score (SRS): 0 Summed reversibility score (SDS): 0 Scores are visually adjusted for potential artifact. TID score: 1.09 (Threshold value of 1.39 is used for Lexiscan stress with Tc-99m) Function: End diastolic volume: 93 mL Left ventricular ejection fraction: 57% Wall motion abnormalities: None. Resting ECG The ECG shows atrial fibrillation. T wave flattening in V1. Stress Findings A pharmacological stress test was performed using regadenoson (Lexiscan). The patient reported SOB during the stress test. The patient reached the end of the protocol. Hemodynamics are adequate for diagnosis. Stress ECG There were no arrhythmias during stress. Arrhythmias during recovery: rare PVCs. No significant ST-T wave changes with stress or recovery. The stress ECG was negative for ischemia. Nuclear Study Quality Lexiscan was used as the stressing method and agent. (Lexiscan given via a 10 - 20 sec injection). Login Workstation plista Authorizing ProviderResult TypeResult StatusDilsely Crooks [facility] STRESS ORDERABLESFinal Result * (ABNORMAL) Basic Metabolic Panel w/ Reflex to MG (01/04/2025 6:30 AM EDT) Only the most recent of2 resultswithin the time period is included. ComponentValueRef RangeTest MethodAnalysis TimePerformed AtPathologist Signature Pzfsyw308350 - 145 mmol/L1 6:30 AM [facility] LABPotassium5.03.7 - 5.3 mmol/L1 6:30 AM [facility] TLBMtfhacef69039 - 107 mmol/L1 6:30 AM [facility] NOOMJ65175 - 31 mmol/L1 6:30 AM [facility] LABAnion Gap8(L)9 - 16 mmol/L1 6:30 AM [facility] BCBWjeesmq155(H)74 - 99 mg/dL01/04/2025 6:30 AM [facility] TILFJG234 - 23 mg/dL01/04/2025 6:30 AM [facility] LABCreatinine1.20.7 - 1.2 mg/dL01/04/2025 6:30 AM [facility] LABEst, Glom Filt Rate68>60 mL/min/1.73m2 01/04/2025 6:30 AM [facility] LABComment: ? These results are not [...] following therapy that affects renal tubular secretion. Calcium9.28.6 - 10.4 mg/dL01/04/2025 6:30 AM [facility] LABSpecimen (Source)Anatomical Location / LateralityCollection Method / VolumeCollection TimeReceived TimeBloodBLOOD SPECIMEN / Avthqzd2801/04/2025 6:30 AM EDT1 6:31 AM EDT Narrative Authorizing ProviderResult TypeResult StatusVallab Janneth MDCHEMISTRY ORDERABLES Final ResultPerforming OrganizationAddressCity/State/ZIP CodePhone Number [facility] [address] [place] [address], [facility] [phone] * Anti-Xa, Unfractionated Heparin (01/03/2025 1:04 PM EDT) Only the most recent of4 resultswithin the time period is included. ComponentValueRef RangeTest MethodAnalysis TimePerformed AtPathologist Signature Anti-XA Unfrac Heparin0.310.30 - 0.70 IU/L1 1:04 PM [facility] LABComment: ? This test has not been validated or calibrated for therapies other than unfractionated heparin. Interpretation of the result in relation to other therapies must be done with caution and within clinical context. ? Specimen (Source)Anatomical Location / LateralityCollection Method / Volume Collection TimeReceived TimeBloodBLOOD SPECIMEN / Cguyxmq3201/03/2025 1:04 PM EDT 01/03/2025 1:05 PM EDT Narrative Authorizing ProviderResult TypeResult StatusVallab Janneth MDHEMATOLOGY ORDERABLESFinal ResultPerforming OrganizationAddressCity/State/ZIP CodePhone Number [facility] [address] [facility] [phone] * (ABNORMAL) ECHO (TTE) COMPLETE W/ CONTRAST (01/03/2025 9:54 AM EDT)Component ValueRef RangeTest MethodAnalysis TimePerformed AtPathologist SignatureBody Surface Area2.23h0JAPQ CV CPACSLV EDV K4V5mISXHH CV CPACSLV EDV A3R35bUWQWX CV CPACSLV ESV X0O86rZGBCT CV CPACSIVSd1.3(A)0.6 - 1.0 cmBSMH CV CPACSLVIDd4.64.2 - 5.9 cmBSMH CV CPACSLVIDs3.6cmBSMH CV CPACSLVOT Diameter2.1cmBSMH CV CPACS LVOT Mean Kmrfxyip9lpWiSKLZ CV CPACSLVOT VTI16.7cmBSMH CV CPACSLVOT Peak Velocity0.8m/sBSMH CV CPACSLVOT Peak Wqlrgfty2hlWuVAAP CV CPACSLVPWd1.3(A)0.6 - 1.0 cmBSMH CV CPACSLV E' Lateral Rwznhrfa95.90cm/sBSMH CV CPACSLV E' Septal Kxnqmtmn16.50cm/sBSMH CV CPACSGlobal longitudinal strain-4.1%BSMH CV CPACSLV Ejection Fraction A4C53%BS[facility] CV CPACSLVOT Area3.3ld6SQIP CV CPACSLVOT SV57.8ml [facility] CV CPACSLA Minor Axis7.4cmBSMH CV CPACSLA Major Axis6.8cmBSMH CV CPACSLA Area 2C23.4ng3NBNZ CV CPACSLA Area 4C22.1fl7BQNT CV CPACSLA Volume MOD A2C60 (A)18 - 58 mLBSMH CV CPACSLA Volume MOD E8Q1886 - 58 mLBSMH CV CPACSLA Volume BP61(A)18 - 58 mLBSMH CV CPACSLA Diameter5.0cmBSMH CV CPACSRA Area 4C17.6cm2 [facility] CV CPACSRA Sntbmt13nkCCOF CV CPACSAV Mean Yfqnderv7krZbKGTU CV CPACSAV VTI31.2cmBSMH CV CPACSAV Mean Velocity1.1m/sBSMH CV CPACSAV Peak Velocity1.5 m/sBSMH CV CPACSAV Peak Llpeybgm1ziMyFUBA CV CPACSAV Area by VTI1.7ko2ZAQB CV CPACSAV Area by Peak Velocity1.6zw0QZCD CV CPACSAortic Root4.2cmBSMH CV CPACS MV E Wave Deceleration Mutm586.0msBSMH CV CPACSMV E Velocity0.90m/sBSMH CV CPACSRV Free Wall Peak S'14.0cm/sBSMH CV CPACSTAPSE1.2(A)>=1.7 cmBSMH CV CPACS TR Max Velocity2.07m/sBSMH CV CPACSTR Peak Jwfsefyf77crSxYKIM CV CPACS Fractional Shortening 1E3270 - 44 %BSMH CV CPACSLV ESV Index N5U18hG/m2BSMH CV CPACSLV EDV Index W9J16lU/m2BSMH CV CPACSLV EDV Index A2C0mL/m2BSMH CV CPACS LVIDd Index2.04cm/m2BSMH CV CPACSLVIDs Index1.60cm/m2BSMH CV CPACSLV RWT Ratio 0.57BSMH CV CPACSLV Mass 2D230.2(A)88 - 224 gBSMH CV CPACSLV Mass 2D Index 102.349 - 115 g/m2BSMH CV CPACSE/E' Ratio (Averaged)7.52BSMH CV CPACSE/E' Lateral6.47BSMH CV CPACSE/E' Septal8.57BSMH CV CPACSLA Volume Index DM2164 - 34 ml/m2BSMH CV CPACSLVOT Stroke Volume Index25.7mL/m2BSMH CV CPACSLA Volume Index MOD V2J3694 - 34 ml/m2BSMH CV CPACSLA Volume Index MOD R9B5652 - 34 ml/m2BSMH CV CPACSLA Size Index2.22cm/m2BSMH CV CPACSLA/AO Root Ratio1.19BSMH CV CPACSRA Volume Index D7X23pL/m2BSMH CV CPACSAo Root Index1.87cm/m2BSMH CV CPACSAV Velocity Ratio0.53BSMH CV CPACSLVOT:AV VTI Index0.54BSMH CV CPACS ROBERT/BSA VTI0.8cm2/m2BSMH CV CPACSAVA/BSA Peak Velocity0.8cm2/m2BSMH CV CPACSEF Rohsjyhla78%BSMH CV CPACSEst. RA Gwiuugej2dmGdMAOF CV GTLSUSLAG78jrTxVOVR CV CPACSAnatomical RegionLateralityModalityEchocardiographySpecimen (Source) Anatomical Location / LateralityCollection Method / VolumeCollection Time Received Time Narrative 01/03/2025 2:27 PM EDT Left Ventricle: Mildly reduced left ventricular systolic function with a visually estimated EF of 45 - 50%. Left ventricle size is normal. Mildly increased wall thickness. Mild global hypokinesis present. Global longitudinal strain is -4.1%. Normal diastolic function. ??E/E' Ratio (Averaged) is 7.52. ?Right??Ventricle: Right ventricle size is normal. Normal systolic function. TAPSE is abnormal. ?Aortic??Valve: Not well visualized. Calcified cusps. Mild regurgitation. ?Mitral??Valve: Mild regurgitation. ?Tricuspid??Valve: Mild regurgitation. Normal RVSP. ?Left??Atrium: Left atrium is dilated. ?Right??Atrium: Right atrium is dilated. ?Aorta: Mildly dilated aortic root. Ao root diameter is 4.2 cm. ?Pericardium: No pericardial effusion. ?Image quality is suboptimal. Contrast used: Lumason. Left Ventricle Mildly reduced left ventricular systolic function with a visually estimated EF of 45 - 50%. Left ventricle size is normal. Mildly increased wall thickness. Mild global hypokinesis present. Global longitudinal strain is -4.1%. Normal diastolic function. E/E' Ratio (Averaged) is 7.52. Right Ventricle Right ventricle size is normal. Normal systolic function. TAPSE is abnormal. Left Atrium Left atrium is dilated. Right Atrium Right atrium is dilated. IVC/SVC IVC diameter is normal or and decreases greater than 50% during inspiration; therefore the estimated right atrial pressure is normal (~3 mmHg). IVC size is normal. Mitral Valve Valve structure is normal. Mild regurgitation. No stenosis noted. Tricuspid Valve Valve structure is normal. Mild regurgitation. No stenosis noted. Normal RVSP. Aortic Valve Not well visualized. Calcified cusps. Mild regurgitation. No stenosis. Pulmonic Valve The pulmonic valve was not well visualized. Mild regurgitation. No stenosis noted. Ascending Aorta Mildly dilated aortic root. Ao root diameter is 4.2 cm. Pericardium No pericardial effusion. Septum No interatrial shunt visualized with color Doppler. Pulmonary Artery Pulmonary artery was not assessed. Study Details Image quality: suboptimal. The view(s) performed were parasternal, apical, subcostal and suprasternal. Additional technique includes myocardial strain. Heart rate was 104 bpm. The underlying ECG rhythm was atrial fibrillation. Color flow Doppler was performed and pulse wave and/or continuous wave Doppler was performed. Lumason contrast was given to enhance imaging. Authorizing ProviderResult TypeResult StatusVallabWarren General Hospital ECHO ORDERABLES Final Result * TSH reflex to FT4 (01/02/2025 1:03 PM EDT)ComponentValueRef RangeTest Method Analysis TimePerformed AtPathologist SignatureTSH1.800.27 - 4.20 uIU/mL 01/02/2025 1:03 PM [facility] LABSpecimen (Source) Anatomical Location / LateralityCollection Method / VolumeCollection Time Received TimeBloodBLOOD SPECIMEN / Jtnfobo7001/02/2025 1:03 PM EDT1 1:05 PM EDT Narrative Authorizing ProviderResult TypeResult StatusEm[facility] Jess Maya I, DO CHEMISTRY ORDERABLESFinal ResultPerforming OrganizationAddressCity/State/ZIP CodePhone Number [facility] [address] [place] [address]. [place] [address], [facility] [phone] * Magnesium (01/02/2025 1:03 PM EDT)ComponentValueRef RangeTest MethodAnalysis TimePerformed AtPathologist SignatureMagnesium2.11.6 - 2.4 mg/dL01/02/2025 1:03 PM [facility] LABSpecimen (Source)Anatomical Location / LateralityCollection Method / VolumeCollection TimeReceived Time BloodBLOOD SPECIMEN / Xcwqdrb7101/02/2025 1:03 PM EDT1 1:05 PM EDT Narrative Authorizing ProviderResult TypeResult StatusSaint Luke'S Hospitalkaruna Maya I, DO CHEMISTRY ORDERABLESFinal ResultPerforming OrganizationAddressCity/State/ZIP CodePhone Number [facility] [address] [facility] [phone] * EKG 12 Lead (01/02/2025 12:44 PM EDT) Only the most recent of2 resultswithin the time period is included. ComponentValueRef RangeTest MethodAnalysis TimePerformed AtPathologist Signature Ventricular Ckzi604DSLDDOU STC MUSEQRS Hfsruhke00nnSEVO STC MUSEQ-T Grnaxgjr930 msMHPN STC MUSEQTc Calculation (Bazett)408msMHPN STC MUSER Ifyy80hkvpcbaFPDA STC MUSET Lvfz81dugubtgEVAV STC MUSESpecimen (Source)Anatomical Location / LateralityCollection Method / VolumeCollection TimeReceived Time01/02/2025 12:44 PM EDT Narrative [facility] STC MUSE - 01/02/2025 8:06 PM EDT Atrial fibrillation with rapid ventricular response Septal infarct , age undetermined Abnormal ECG No previous ECGs available Procedure Note Cristofer Mcdonough MD - 01/02/2025 Atrial fibrillation with rapid ventricular response Septal infarct , age undetermined Abnormal ECG No previous ECGs available Authorizing ProviderResult TypeResult StatusMansour Jess Maya I, DOECG ORDERABLESFinal ResultPerforming OrganizationAddressCity/State/ZIP CodePhone Number [facility] MUSE * CBC (01/02/2025 11:20 AM EDT)ComponentValueRef RangeTest MethodAnalysis Time Performed AtPathologist SignatureWBC7.03.5 - 11.3 k/uL01/02/2025 11:20 AM EDT [facility]IESRBC5.344.21 - 5.77 m/uL01/02/2025 11:20 AM EDTMERCY HNQOJJUEZFDONdmalcgkpt50.213.0 - 17.0 g/dL01/02/2025 11:20 AM EDTMERCY NFJCUKRAVGAPFlwljabywt46.540.7 - 50.3 %01/02/2025 11:20 AM EDTMERCY MWXBCBLLJAHWOEH23.782.6 - 102.9 fL01/02/2025 11:20 AM EDTMERCY LABORATORIESMCH 30.325.2 - 33.5 pg01/02/2025 11:20 AM EDTMERCY PVBSOXXUMSCVDVRV01.728.4 - 34.8 g/dL01/02/2025 11:20 AM EDPOMERENE [facility]OSPITALY DYCCBMFHSKBHZPJ45.911.8 - 14.4 %01/02/2025 11:20 AM EDPOMERENE [facility]ITALY KZSUJQKIPKIXYjecgdpdw971887 - 453 k/uL01/02/2025 11:20 AM EDTMERCY LABORATORIESMPV9.88.1 - 13.5 fL01/02/2025 11:20 AM EDTMERCY LABORATORIESNRBC Automated0.00.0 per 100 WBC01/02/2025 11:20 AM EDPOMERENE HOSPITALY LABORATORIESSpecimen (Source)Anatomical Location / LateralityCollection Method / VolumeCollection TimeReceived TimeBloodBLOOD SPECIMEN / Zmpkcpe3701/02/2025 11:20 AM EDT1 11:51 AM EDT Narrative Authorizing ProviderResult TypeResult StatusSarolanda Godoy MDHEMATOLOGY ORDERABLES Final ResultPerforming OrganizationAddressCity/State/ZIP CodePhone Number [facility] [address] [place] [address], [facility] [phone] [facility] [address] [place] [address], [facility] [phone] * TYPE AND SCREEN (01/02/2025 11:20 AM EDT)ComponentValueRef RangeTest Method Analysis TimePerformed AtPathologist SignatureBlood Bank Sample Expiration 01/19/2025,610084 11:20 AM [facility] LABArm Band OxggbsIC21201030/20/2025 11:20 AM [facility] ABO/RhA ZIWSDHYQ58/20/2025 11:20 AM [facility] Antibody LigvacPHIOAILG31/20/2025 11:20 AM [facility] LABSpecimen (Source)Anatomical Location / LateralityCollection Method / Volume Collection TimeReceived TimeBloodBLOOD SPECIMEN / Txnnvge2301/02/2025 11:20 AM EDT1 11:51 AM EDT Narrative Authorizing ProviderResult TypeResult StatusBradley Milner MDBLOOD BANK TEST ORDERABLESFinal ResultPerforming OrganizationAddressCity/State/ZIP CodePhone Number [facility] [address] [place] [id number], [facility] [phone] * Basic Metabolic Panel (01/02/2025 11:20 AM EDT)ComponentValueRef RangeTest MethodAnalysis TimePerformed AtPathologist LeffqfxigGeptgw404737 - 145 mmol/L 01/02/2025 11:20 AM EDTMERCY LABORATORIESPotassium5.23.7 - 5.3 mmol/L 01/02/2025 11:20 AM EDTMERCY LABORATORIESComment: Specimen hemolysis has exceeded the interference as defined by Jan. Value may be falsely increased. Suggest recollection if clinically indicated. Uhqrccss72491 - 107 mmol/L1 11:20 AM EDTMERCY DQIVUCNTIVOHSP90232 - 31 mmol/L1 11:20 AM EDTMERCY LABORATORIESAnion Oeb806 - 16 mmol/L 01/02/2025 11:20 AM EDTMERCY QIBAKGBHZSXSPlsiqfy6155 - 99 mg/dL01/02/2025 11:20 AM EDTMERCY LIHCYIVSJRSEXCD254 - 23 mg/dL01/02/2025 11:20 AM EDTMERCY LABORATORIESCreatinine1.10.7 - 1.2 mg/dL01/02/2025 11:20 AM EDTMERCY LABORATORIESEst, Glom Filt Rate75>60 mL/min/1.38s49201/02/2025 11:20 AM EDTMERCY LABORATORIESComment: ? These results are not intended for [...] following therapy that affects renal tubular secretion. Calcium9.88.6 - 10.4 mg/dL01/02/2025 11:20 AM EDTMERCY LABORATORIESSpecimen (Source)Anatomical Location / LateralityCollection Method / VolumeCollection TimeReceived TimeBloodBLOOD SPECIMEN / Wotmrvm2801/02/2025 11:20 AM EDT1 11:51 AM EDT Narrative Authorizing ProviderResult TypeResult StatusSaebom Walt MDCHEMISTRY ORDERABLES Final ResultPerforming OrganizationAddressCity/State/ZIP CodePhone Number [facility] [address] [place] [address], [facility] [phone] [facility] [address] [place] [address], [facility] [phone] from Last 3 Months Insurance * Guarantor: Rosa Arizmendi TypeRelation to PatientDate of BirthPhone Billing AddressPersonal/OzjwfoTzxi44/08/1961 [address] [phone] * Guarantor: Rosa Arizmendi TypeRelation to PatientDate of BirthPhone Billing AddressPersonal/GwguuhGzgk21/08/1961 [address] [phone] Advance Directives * Full Code (Latest Code Status on File) Date ActivatedDate FoettlkahseZlgafqsm62/20/2025 4:26 PM10 6:43 PM * Full Code Date ActivatedDate ZplitsiaayeDxrnmbqu47/19/2015 10:00 01/04/2015 9:00 PM Care Teams Team MemberRelationshipSpecialtyStart DateEnd Date Ari Pagan DO PCP - GeneralInternal Medicine03/24/18
[2025-03-14 11:53] LABS: Cholesterol 158 mg/dL (<=200); HDL Cholesterol 57 mg/dL (40-60); Triglycerides 122 mg/dL (<=150); VLDL CHOLESTEROL 24.4 mg/dL
== END 2025-03-14 11:22 | disposition home or self-care (01) ==
LOC: LAB 11:22
PROVIDERS: PCP Internal Medicine; Visit Provider Internal Medicine
DX: Z00.00 Encounter for general adult medical examination without abnormal findings (principal)
CPT/HCPCS: 36415; 80061; 83036